=== PATIENT | female | born 1950 | race African-American/Black ===

== ENCOUNTER 2018-07-07 05:49 | Inpatient (IN) | payer MEDICARE, MEDICAID ==
[~2018-07-07] VITALS: Wt 63.6 kg
[2018-07-07] VITALS (28 sets, daily range): BP systolic 91–178; BP diastolic 43–87; PULSE 64–80; RESP 13–19
[~2018-07-07 05:49] MED LIST: ACET325T33 PO; AMLO5TAB4 PO; BUPR-75 PO; CLON-379 PO; DIPH50VI2 IM; DOCU250C58 PO; ESCI20TA PO; GABA600T PO; HYDR25TA6 PO; HYDR50TA15 PO; IBUP-1542 PO; LACT-9 PO; LIDO700A6 TD; METO-336 PO; OMEP20CA9 PO; OXYC-281 PO; OXYC40TA26 PO; POTA20PA PO; SENN-36 PO; TOLT2TAB5 PO; TRAZ300T15 PO; [UNRECOGNIZED DRUG - CODE] IM
--- NOTE | 2018-07-07 06:33 | ERD ---
ER Documentation Chief Complaint Chief Complaint bib RA possible right hip fracture s/p fall HPI This is a 68-year-old female with a past medical history of hypertension, hyperlipidemia, previous lumbar spinal fusion with chronic pain and frequent falls who is presenting after a mechanical fall this morning. The patient was reportedly walking to the bathroom. She went to turn on the lights that she could see where she was going when she lost her balance and fell, landing on her right hip. She has been unable to ambulate since. The patient has limited range of motion to the right hip secondary to pain. The right leg is shortened. The patient is able to move the right ankle and toes without difficulty. Her foot is not cold or pale or blue. Her sensation is intact. Her pulses are intact. The patient does not endorse any other trauma or injury. The patient denies feeling sick recently. The patient denies fever or chills. The patient has had no headache or vision changes. The patient does not endorse neck or back pain. The patient denies lightheadedness or dizziness. The patient has had no chest pain or trouble breathing. The patient denies nausea or vomiting. The patient denies abdominal pain. The patient denies changes to bowel movements or urination. The patient has had no focal deficits. The patient has had no weakness or numbness or tingling to the face or extremities. ROS All systems reviewed and are negative except as per history of present illness. Medications Home Meds Reported Medications Trazodone Hcl* (Trazodone Hcl*) 300 Mg Tablet, 300 MG PO HS, TAB 05/22/14 Lactose-Free Food (ENSURE LIQUID) 237 Ml Liquid, 237 ML PO DAILY 05/22/14 Clonidine Hcl* (Clonidine Hcl*) 0.1 Mg Tab, 0.1 MG PO DAILY PRN for ELEVATED BLOOD PRESSURE, TAB 05/22/14 Escitalopram Oxalate* (Lexapro*) 20 Mg Tablet, 20 MG PO DAILY, TAB 05/22/14 Metoprolol Succinate* (Toprol XL*) 100 Mg Tab.sr.24h, 100 MG PO BID, TAB 05/22/14 Acetaminophen* (Tylenol*) 325 Mg Tablet, 650 MG PO EVERY 4-6 HOURS PRN for PAIN AND OR ELEVATED TEMP, TAB 05/22/14 Omeprazole* (Prilosec*) 20 Mg Capsule.dr, 20 MG PO DAILY, CAP 05/22/14 Potassium Chloride (Klor-Con) 20 Meq/Pkt Packet, 20 MEQ PO DAILY, PACKET 05/22/14 Ibuprofen* (Ibuprofen*) 600 Mg Tablet, 600 MG PO EVERY 6-8 HOURS PRN for PAIN, TAB 05/22/14 Amlodipine Besylate* (Norvasc*) 5 Mg Tablet, 5 MG PO DAILY, TAB 05/22/14 Diphenhydramine* Inj (Benadryl* Inj) 50 Mg/Ml Vial, 50 MG IM Q6 PRN for ALLERGIC REACTION, VIAL 05/22/14 Meperidine Hcl/Pf (Demerol 75 Mg/1.5 Ml Ampul) 75 Mg/1.5 Ml Ampul, 75 MG IM Q6 PRN for PAIN 05/22/14 Lidocaine 5%* (Lidoderm 5%*) 5% - Patch Adh..patch, 1 PATCH TD HS PRN for ANESTHESIA, PATCH 05/22/14 Hydroxyzine Hcl* (Hydroxyzine Hcl*) 50 Mg Tablet, 50 MG PO BID, TAB 05/22/14 Gabapentin* (Neurontin*) 600 Mg Tablet, 600 MG PO BID, TAB 05/22/14 Oxycodone Hcl-Acetaminophen* (Percocet*) 5-325 Mg Tablet, 1 TAB PO Q6 PRN for PAIN, TAB 05/22/14 Tolterodine Tartrate* (Tolterodine Tartrate*) 2 Mg Tablet, 2 MG PO BID, TAB 05/22/14 Sennosides* (Senokot*) 8.6 Mg Tablet, 1 TAB PO HS, TAB 05/22/14 Oxycodone Hcl* (Oxycontin*) 40 Mg Tab.er.12h, 40 MG PO Q12, TAB 05/22/14 Hydrochlorothiazide* (Hydrochlorothiazide*) 25 Mg Tab, 25 MG PO DAILY, TAB 05/22/14 Docusate Sodium* (Colace*) 250 Mg Capsule, 250 MG PO DAILY PRN for CONSTIPATION, CAP 05/22/14 Bupropion Hcl* (Wellbutrin XL*) 150 Mg Tab.sr.24h, 450 MG PO DAILY, TAB.SA 05/22/14 Allergies Allergies: Coded Allergies: codeine (Verified Allergy, Unknown, 07/07/18) hydrocodone (Verified Allergy, Unknown, 07/07/18) hydromorphone (Verified Allergy, Unknown, 07/07/18) methadone (Verified Allergy, Unknown, 07/07/18) morphine (Verified Allergy, Unknown, 07/07/18) PMhx/Soc History of Surgery: Yes (L/S SPINAL FUSION, left shoulder surgery) Anesthesia Reaction: No Hx Neurological Disorder: No Hx Respiratory Disorders: No Hx Cardiac Disorders: Yes (Hypertension, hypercholesterolemia) Hx Psychiatric Problems: Yes (depression) Hx Miscellaneous Medical Probl: Yes (HTN, Chronic pain, fall history) Hx Alcohol Use: No Hx Substance Use: No Hx Tobacco Use: No Smoking Status: Never smoker FmHx Family History: No diabetes Physical Exam Vitals Vital Signs Date Temp Pulse Resp B/P (MAP) Pulse Ox O2 O2 Flow FiO2 Time Delivery Rate 07/07/18 98.4 62 16 132/92 100 06:00 (105) Physical Exam Const: No apparent distress, well-developed, well-nourished Head: Normocephalic, Atraumatic Eyes: Normal Conjunctiva. Extraocular movements grossly intact. ENT: Normal External Ears, Nose and Mouth. Neck: Full range of motion. No meningismus. Resp: Clear to auscultation bilaterally, No wheezes, rales or rhonchi Cardio: Regular rate and rhythm. No murmurs, rubs or gallops. Normal tibial and DP pulses. Abd: Soft, non tender, non distended. Normal bowel sounds Skin: No petechiae or rashes Back: No midline tenderness. No CVA tenderness Ext: No cyanosis, or edema. Limited range of motion to the right hip secondary to pain. Right leg shortening. Neur: Awake and alert, oriented 4. Cranial nerves grossly intact. No facial droop. Normal strength, sensation and coordination. Psych: Normal Mood and Affect Result Diagram: 07/07/18 0625 07/07/18 0625 Results 24 hrs Laboratory Tests Test 07/07/18 06:25 White Blood Count 8.5 10^3/ul Red Blood Count 4.22 10^6/ul Hemoglobin 13.2 g/dl Hematocrit 41.6 % Mean Corpuscular Volume 98.6 fl Mean Corpuscular Hemoglobin 31.3 pg Mean Corpuscular Hemoglobin Concent 31.7 g/dl Red Cell Distribution Width 13.1 % Platelet Count 158 10^3/UL Mean Platelet Volume 11.6 fl Immature Granulocytes % 0.500 % Neutrophils % 68.6 % Lymphocytes % 24.9 % Monocytes % 5.2 % Eosinophils % 0.6 % Basophils % 0.2 % Nucleated Red Blood Cells % 0.0 /100WBC Immature Granulocytes # 0.040 10^3/ul Neutrophils # 5.9 10^3/ul Lymphocytes # 2.1 10^3/ul Monocytes # 0.4 10^3/ul Eosinophils # 0.1 10^3/ul Basophils # 0.0 10^3/ul Nucleated Red Blood Cells # 0.0 10^3/ul Prothrombin Time 11.9 Sec Prothrombin Time Ratio 0.9 INR International Normalized Ratio 0.87 Sodium Level 143 mmol/L Potassium Level 3.4 mmol/L Chloride Level 104 mmol/L Carbon Dioxide Level 33 mmol/L Anion Gap 6 Blood Urea Nitrogen 16 mg/dl Creatinine 0.93 mg/dl Est Glomerular Filtrat Rate mL/min > 60 mL/min Glucose Level 103 mg/dl Calcium Level 9.6 mg/dl Current Medications Medications Dose Sig/Brenda Start Time Status Last (Trade) Ordered Route PRN Stop Time Admin Dose Reason Admin Ondansetron 4 mg BRIDGE ORDER 07/07/18 HCl (Zofran PRN IV 08:00 07/08/18 Inj) NAUSEA/VOMITI 07:59 NG 650 mg ER BRIDGE 07/07/18 Acetaminophen PRN PO 08:00 07/08/18 (Tylenol .MILD PAIN 07:59 Tab) 1-3 OR TEMP Procedures/MDM MDM The patient's presentation warrants further investigation. Previous medical records, if available, were reviewed. LABS The patient's laboratory testing was obtained and reviewed. No emergent treatment was required unless described below. CBC: No E/o systemic infection or severe anemia or thrombocytopenia Chemistry: No E/o severe acidosis or renal failure or diabetic ketoacidosis. Mild hypokalemia, nonemergent. Mild metabolic alkalosis, not emergent. PT/INR: No E/o significant coagulopathy EKG EKG read by me: Rate/Rhythm: Sinus bradycardia at 59 bpm Intervals: Normal [place]: Normal Impression: No evidence of acute ischemia. Sinus bradycardia. IMAGING Imaging and Radiology interpretation reviewed. CXR 1V Interpreted by me Soft Tissue: No acute abnormalities Bones: No acute abnormalities. Left humeral surgical hardware present. Mediastinum/Cardiac Silhouette: Unremarkable. No widened mediastinum. Lungs: No acute abnormalities. Normal pulmonary vasculature. No pneumothorax. No pulmonary edema. Clear costal diaphragmatic angles. No pleural effusions. No opacity or consolidations concerning for pneumonia. XR R Hip Interpreted by me R femur surgical neck fracture XR R Femur PENDING TREATMENT/DISPOSITION The patient presents with right hip pain after fall. The x-ray demonstrates a right femur surgical neck fracture. This will require operative intervention. The patient will require further evaluation and management in the hospital. The on-call orthopedic surgeon, Dr. Caldwell, was consulted on the case. There is no other evidence of trauma or injury. The patient presents after a trauma. The patient was evaluated fully without evidence of emergent posttraumatic pathology. The patient has no focal deficits. I've low suspicion for intracranial pathology. I have low suspicion for cerebral ischemia or intracranial hemorrhage. The patient has no cervical spine tenderness. He can move his neck in all directions without any pain. As stated above, he does not have any focal deficits. He is not altered or intoxicated. He does not have any distracting injuries. The patient's cervical spine was clinically cleared using the Nexus C-spine rule. The patient does not have any saddle anesthesia. He has not been incontinent of urine or stool. He has not had any retention of urine or stool. I have low suspicion for spinal cord injury. The patient's chest x-ray does not reveal any evidence of pneumonia or pneumothorax or pulmonary edema or pleural effusion. The patient's cardiomediastinal silhouette is unremarkable. I do not suspect pericardial effusion. I do not see any mediastinal free air. I have low suspicion for esophageal tear or rupture. The patient does not have a widened mediastinum. The patient does not have chest pain radiating to the back. It does not have a sharp or tearing quality. I have low suspicion for thoracic aortic aneurysm or rupture or dissection. The patient's symptoms are not consistent with pulmonary embolism. The patient does not have any abdominal pain. I have low suspicion for posttraumatic intra-abdominal pathology. The patient's vital signs are unremarkable. I low suspicion for hepatic or splenic or renal trauma. The patient does not have any GI or urinary bleeding. I decreased suspicion for intestinal injury. I have low suspicion for urethral injury. Preoperative testing was completed. The patient was treated with a dose of fentanyl for pain. ADMISSION At this time, I feel that the patient requires admission for further evaluation and magnagement. The patient will be admitted to panel in accordance with the patient's insurance. The patient was accepted by Dr. Ramos to Panel at 7:11AM on 07/07/2018. Dr. Caldwell was consulted on the case. Disclaimer: Inadvertent spelling and grammatical errors are likely due to EHR/dictation software use and do not reflect on the overall quality of patient care. Note that the electronic time recorded on this note does not necessarily reflect the actual time of the patient encounter. Departure Diagnosis: Primary Impression: Hip fracture Encounter type: initial encounter Fracture type: closed Laterality: r ight Qualified Codes: S72.001A - Fracture of unspecified part of neck of right femur, initial encounter for closed fracture Additional Impressions: Right hip pain Fall from ground level Hypokalemia Metabolic alkalosis Condition: Serious MIR ARMANDO MD July 07, 2018 06:31
[2018-07-07] MEDS ORDERED: DESFLURANE 15 MIN ONE (07:00)
[2018-07-07] MEDS ORDERED: FENTAnyl 50 MCG/ML VIAL IV ONE (08:00)
[2018-07-07] MEDS ORDERED: ACETAMINOPHEN 325 MG TAB PO PRN ×2 (08:00→09:30)
[2018-07-07] MEDS ORDERED: ONDANSETRON 4 MG INJ IV PRN ×4 (08:00→18:30)
[2018-07-07] MEDS ORDERED: POTASSIUM CHLORIDE 100 ML IVPB ONE (09:00)
--- NOTE | 2018-07-07 09:09 | HP ---
Date/Time of Note Date/Time of Note DATE: 07/07/18 TIME: 08:54 Assessment/Plan VTE Prophylaxis SCD applied (from Nsg): Yes Pharmacological prophylaxis: heparin Lines/Catheters IV Catheter Type (from Nrsg): Saline Lock Assessment/Plan Problems: (1) Closed right hip fracture Status: Acute Comment: Is already been seen by orthopedics and wishes to take her to surgery for repair. At this time I find her to be an acceptable surgical candidate and concur with your plans to proceed with surgery. She has a modest hypokalemia which will evaluate at a later date for because were going ahead and replace it IV now. She has an average surgical risk as compared to her age-matched peers and should do well using standard routine anesthesia precautions. Using the modified Caceres's criteria she is at intermediate risk Qualifiers: Encounter type: initial encounter Qualified Codes: S72.001A - Fracture of unspecified part of neck of right femur, initial encounter for closed fracture (2) Acute hypokalemia Status: Acute Comment: Reports this is actually chronic issue. I will go ahead and replete this but they will need to look into why this is happening. (3) Essential hypertension Status: Chronic Comment: Continue with blood pressure medications (4) Hyperlipidemia Status: Chronic Comment: Statin therapy Qualifiers: Hyperlipidemia type: pure hypercholesterolemia Qualified Codes: E78.00 - Pure hypercholesterolemia, unspecified (5) Chronic pain disorder Status: Chronic Comment: Patient reports she has multiple medication intolerances but is able to take OxyContin. She reports that gabapentin the past was of no benefit after an 8-year trial of medications. (6) Dysthymia Status: Chronic Comment: Continue with SSRI therapy (7) Closed fracture dislocation of left sacroiliac joint Status: Chronic Comment: Historical issue, noted from 4 years ago (8) Compression fracture of L3 vertebra Status: Chronic Comment: Noted. Qualifiers: Encounter type: subsequent encounter Fracture healing: with routine healing Qualified Codes: S32.030D - Wedge compression fracture of third lumbar vertebra, subsequent encounter for fracture with routine healing (9) History of lumbar spinal fusion Status: Chronic Comment: Noted. (10) History of open reduction and internal fixation (ORIF) procedure Status: Chronic Comment: This was of the left humerus, noted. Result Diagram: 07/07/1862407/07/18624 Results 24hrs Laboratory Tests Test 07/07/18 06:25 White Blood Count 8.5 Red Blood Count 4.22 Hemoglobin 13.2 Hematocrit 41.6 Mean Corpuscular Volume 98.6 Mean Corpuscular Hemoglobin 31.3 Mean Corpuscular Hemoglobin Concent 31.7 L Red Cell Distribution Width 13.1 Platelet Count 158 Mean Platelet Volume 11.6 H Immature Granulocytes % 0.500 H Neutrophils % 68.6 Lymphocytes % 24.9 Monocytes % 5.2 Eosinophils % 0.6 Basophils % 0.2 Nucleated Red Blood Cells % 0.0 Immature Granulocytes # 0.040 H Neutrophils # 5.9 Lymphocytes # 2.1 Monocytes # 0.4 Eosinophils # 0.1 Basophils # 0.0 Nucleated Red Blood Cells # 0.0 Prothrombin Time 11.9 Prothrombin Time Ratio 0.9 INR International Normalized Ratio 0.87 Sodium Level 143 Potassium Level 3.4 L Chloride Level 104 Carbon Dioxide Level 33 H Anion Gap 6 Blood Urea Nitrogen 16 Creatinine 0.93 Est Glomerular Filtrat Rate mL/min > 60 Glucose Level 103 Calcium Level 9.6 CC: NISH CORBETT MD ; HPI/ROS Admit Date/Time Admit Date/Time July 07, 2018 Hx of Present Illness 68-year-old single female who is a resident of an assisted living facility. She has a history of chronic pain syndrome after several back surgeries. She in the past and had a history of frequent falls with the patient reports she had not had any falls in the last 3 years. She reports she needed to go to the bathroom when she got out of her bed but caught her foot on her cane and went down sustaining injury to the right hip. She was transported here for further evaluation and assistance. Primary care physician is Dr. Sparks, see review of systems ROS Constitutional: no complaints (No fevers chills or sweats) Eyes: no complaints ENT: no complaints Respiratory: no complaints Cardiovascular: no complaints (Patient reports no chest pain palpitations orthopnea or PND. She ambulates with a walker and can ambulate distance but does not climbing stairs. 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 Current Medications Ondansetron HCl (Zofran Inj) 4 mg BRIDGE ORDER PRN IV NAUSEA/VOMITING; Start 07/07/18 at 08:00; Stop 07/08/18 at 07:59 Acetaminophen (Tylenol Tab) 650 mg ER BRIDGE PRN PO .MILD PAIN 1-3 OR TEMP; Start 07/07/18 at 08:00; Stop 07/08/18 at 07:59 Potassium Chloride 100 ml @ 50 mls/hr ONCE ONCE IVPB ; Start 07/07/18 at 09:00; Stop 07/07/18 at 10:59 Coded Allergies: codeine (Verified Allergy, Unknown, 07/07/18) hydrocodone (Verified Allergy, Unknown, 07/07/18) hydromorphone (Verified Allergy, Unknown, 07/07/18) methadone (Verified Allergy, Unknown, 07/07/18) morphine (Verified Allergy, Unknown, 07/07/18) Past Surgical History Past Surgical Hx: other (Is post lumbar surgery x4 with multilevel fusion and cage; status post ORIF of left humerus fracture;) Family History Significant Family History: no pertinent family hx Social History [place] [facility] and raised in [place] [facility] age [place] 7 in the [place]. 2 years of college without experience. She is a divorce she has 2 children. Alcohol Use: none Smoking Status: Never smoker Drug Use: none Exam/Review of Systems Vital Signs Vitals Vital Signs Date Temp Pulse Resp B/P (MAP) Pulse Ox O2 O2 Flow FiO2 Time Delivery Rate 07/07/18 98.4 62 16 132/92 100 06:00 (105) Exam Constitutional: alert, oriented Psych: no complaints Head: normocephalic, atraumatic Eyes: nl conjunctiva, EOMI, nl lids, nl sclera, PERRL ENMT: nl external ears & nose, nl lips & teeth, nl nasal mucosa & septum, mucosa pink and moist Neck: supple, non-tender Respiratory: clear to auscultation, normal air movement Cardiovascular: regular rate and rhythm, nl pulses Gastrointestinal: soft, nl liver, spleen, non-tender Extremities: other (Left upper extremity limited range of motion of the shoulder; right lower extremity retracted and rotated) Neurological: RESIDENT DIRECTOR II-XII intact, nl mental status, nl speech, nl strength PRERNA BARONE MD July 07, 2018 09:06
[2018-07-07] MEDS ORDERED: OXYCODONE/ACETAMINOPHEN (5/325) TAB PO PRN ×3 (09:30→15:30)
[2018-07-07] MEDS ORDERED: NACL 0.9% 3 ML SYG IV SCH (09:30)
[2018-07-07] MEDS ORDERED: DOCUSATE SODIUM 250 MG CAP PO PRN (09:30)
[2018-07-07] MEDS ORDERED: ZOLPIDEM 5 MG TAB PO PRN (09:30)
[2018-07-07] MEDS ORDERED: LIDOCAINE 5% PATCH TD PRN (09:30)
[2018-07-07] MEDS ORDERED: MAGNESIUM HYDROXIDE 30ML CUP PO PRN ×2 (09:30→18:30)
[2018-07-07] MEDS ORDERED: ONDANSETRON 4 MG TAB PO PRN (09:30)
--- NOTE | 2018-07-07 13:10 | CONS ---
Assessment/Plan Assessment/Plan Hospital Course (Demo Recall) This is a 68-year-old female who presented with acute right displaced femoral neck fracture. She uses a walker to ambulate at all times. She is a high fall risk. She is at increased risk of dislocation secondary to multilevel spine fusion. Given her dislocation risk as well as activity level I am recommending a hemiarthroplasty hip replacement. I reviewed other options the patient such as nonoperative treatment and it explained to her that she would be immobile and bedridden for many months and likely would not be able to bear weight on that extremity. I reviewed the risks with the patient and she wished to proceed with surgery. A lengthy discussion was held. The operative procedure was explained using diagrams and/or three-dimensional models. The rehabilitation, the potential risks, benefits and alternatives were discussed at length. Specific risks discussed included but were not limited to excessive blood loss and the need for transfusion and therefore the risk of transmissible disease or transfusion reaction, deep infection and the potential need for repetitive debridements, implant removal, long-term antibiotic therapy, possibly requiring deep venous access, leg-length discrepancy, dislocation, possibly recurrent, with the need for closed versus open reduction, bracing, femoral or acetabular fracture and the need for further surgery for fixation, neurovascular injury with temporary or permanent numbness, tingling, weakness or paralysis, deep venous thrombosis, pulmonary embolism and , persistent pain, weakness, or limp, late aseptic loosening and the need for revision, polyethylene wear-induced osteolysis and related problems, and finally, a wide variety of unanticipated medical problems. The opportunity to ask questions and address any concerns was provided. The patient wished to proceed with surgery. Patient already is medically optimized and cleared by medicine. Plan for right hemiarthroplasty today. N.p.o. Nonweightbearing right lower extremity Pain control Consultation Date/Type/Reason Admit Date/Time July 07, 2018 Date of Consultation: July 07, 2018 Reason for Consultation Right hip fracture Date/Time of Note DATE: 07/07/18 TIME: 13:02 Hx of Present Illness This is a 68-year-old female with history of numerous spine surgeries, hypokalemia, hypertension, chronic pain disorder, depression who presented to the emergency department this morning with a right femoral neck fracture. She fell while in her apartment. She lives in an assisted living. She is been there for more than 5 years. She uses a walker at all times. This is secondary to chronic back pain, balance issues, frequent falls. She also has history of right ankle fracture x2 and has chronic pain in her ankle. Patient does have numbness and tingling that is chronic. Denies any new pain since falling. Denies any head trauma. Denies loss of consciousness. Patient does have multiple dental issues and is going to have her teeth pulled in a short while. Patient denies fever, chills, shortness of breath, chest pain, nausea/vomiting, constipation, diarrhea, numbness, and tingling. 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; history of pelvic fracture; history of left humerus fracture x2) Home Meds Reported Medications Trazodone Hcl* (Trazodone Hcl*) 300 Mg Tablet, 300 MG PO HS, TAB 05/22/14 Lactose-Free Food (ENSURE LIQUID) 237 Ml Liquid, 237 ML PO DAILY 05/22/14 Clonidine Hcl* (Clonidine Hcl*) 0.1 Mg Tab, 0.1 MG PO DAILY PRN for ELEVATED BLOOD PRESSURE, TAB 05/22/14 Escitalopram Oxalate* (Lexapro*) 20 Mg Tablet, 20 MG PO DAILY, TAB 05/22/14 Metoprolol Succinate* (Toprol XL*) 100 Mg Tab.sr.24h, 100 MG PO BID, TAB 05/22/14 Acetaminophen* (Tylenol*) 325 Mg Tablet, 650 MG PO EVERY 4-6 HOURS PRN for PAIN AND OR ELEVATED TEMP, TAB 05/22/14 Omeprazole* (Prilosec*) 20 Mg Capsule.dr, 20 MG PO DAILY, CAP 05/22/14 Potassium Chloride (Klor-Con) 20 Meq/Pkt Packet, 20 MEQ PO DAILY, PACKET 05/22/14 Ibuprofen* (Ibuprofen*) 600 Mg Tablet, 600 MG PO EVERY 6-8 HOURS PRN for PAIN, TAB 05/22/14 Amlodipine Besylate* (Norvasc*) 5 Mg Tablet, 5 MG PO DAILY, TAB 05/22/14 Diphenhydramine* Inj (Benadryl* Inj) 50 Mg/Ml Vial, 50 MG IM Q6 PRN for ALLERGIC REACTION, VIAL 05/22/14 Meperidine Hcl/Pf (Demerol 75 Mg/1.5 Ml Ampul) 75 Mg/1.5 Ml Ampul, 75 MG IM Q6 PRN for PAIN 05/22/14 Lidocaine 5%* (Lidoderm 5%*) 5% - Patch Adh..patch, 1 PATCH TD HS PRN for ANESTHESIA, PATCH 05/22/14 Hydroxyzine Hcl* (Hydroxyzine Hcl*) 50 Mg Tablet, 50 MG PO BID, TAB 05/22/14 Gabapentin* (Neurontin*) 600 Mg Tablet, 600 MG PO BID, TAB 05/22/14 Oxycodone Hcl-Acetaminophen* (Percocet*) 5-325 Mg Tablet, 1 TAB PO Q6 PRN for PAIN, TAB 05/22/14 Tolterodine Tartrate* (Tolterodine Tartrate*) 2 Mg Tablet, 2 MG PO BID, TAB 05/22/14 Sennosides* (Senokot*) 8.6 Mg Tablet, 1 TAB PO HS, TAB 05/22/14 Oxycodone Hcl* (Oxycontin*) 40 Mg Tab.er.12h, 40 MG PO Q12, TAB 05/22/14 Hydrochlorothiazide* (Hydrochlorothiazide*) 25 Mg Tab, 25 MG PO DAILY, TAB 05/22/14 Docusate Sodium* (Colace*) 250 Mg Capsule, 250 MG PO DAILY PRN for CONSTIPATION, CAP 05/22/14 Bupropion Hcl* (Wellbutrin XL*) 150 Mg Tab.sr.24h, 450 MG PO DAILY, TAB.SA 05/22/14 Medications Current Medications Ondansetron HCl (Zofran Inj) 4 mg BRIDGE ORDER PRN IV NAUSEA/VOMITING; Start 07/07/18 at 08:00; Stop 07/08/18 at 07:59 Acetaminophen (Tylenol Tab) 650 mg ER BRIDGE PRN PO .MILD PAIN 1-3 OR TEMP; Start 07/07/18 at 08:00; Stop 07/08/18 at 07:59 IV Flush (NS 3 ml) 3 ml PER PROTOCOL IV ; Start 07/07/18 at 09:30 Ondansetron HCl (Zofran Tab) 4 mg Q6H PRN PO NAUSEA/VOMITING; Start 07/07/18 at 09:30 Ondansetron HCl (Zofran Inj) 4 mg Q6H PRN IV NAUSEA/VOMITING; Start 07/07/18 at 09:30 Acetaminophen (Tylenol Tab) 650 mg Q6H PRN PO .PAIN 1-3 OR TEMP; Start 07/07/18 at 09:30 Oxycodone/ Acetaminophen (Percocet (5/ 325)) 1 tab Q6H PRN PO .MOD PAIN 4-6 Last administered on 07/07/18at 09:48; Admin Dose 1 TAB; Start 07/07/18 at 09:30 Magnesium Hydroxide (Milk Of Mag) 30 ml DAILY PRN PO .CONSTIPATION; Start 07/07/18 at 09:30 Zolpidem Tartrate (Ambien) 5 mg QHS PRN PO .INSOMNIA; Start 07/07/18 at 09:30 Famotidine (Pepcid) 20 mg Q12 PO ; Start 07/07/18 at 21:00 Heparin Sodium (Porcine) (Heparin (5000 Units/1ml)) 5,000 unit Q12 SC ; Start 07/07/18 at 21:00 Amlodipine Besylate (Norvasc) 5 mg DAILY PO ; Start 07/08/18 at 09:00 Bupropion HCl (Wellbutrin Xl) 450 mg DAILY PO ; Start 07/08/18 at 09:00 Clonidine (Catapres) 0.1 mg DAILY PRN PO ELEVATED BLOOD PRESSURE; Start 07/07/18 at 09:30; Status Hold Docusate Sodium (Colace) 250 mg DAILY PRN PO CONSTIPATION; Start 07/07/18 at 09:30 Escitalopram Oxalate (Lexapro) 20 mg DAILY PO ; Start 07/08/18 at 09:00 Hydroxyzine HCl (Atarax) 50 mg BID PO ; Start 07/07/18 at 21:00 Lidocaine (Lidoderm) 1 patch HS PRN TD ANESTHESIA; Start 07/07/18 at 09:30 Metoprolol Succinate (Toprol Xl) 100 mg BID PO ; Start 07/07/18 at 21:00 Oxycodone HCl (Oxycontin) 40 mg Q12 PO ; Start 07/07/18 at 21:00 Potassium Chloride (Potassium Chloride Pwd/Soln) 20 meq DAILY PO ; Start 07/08/18 at 09:00 Senna (Senokot) 1 tab HS PO ; Start 07/07/18 at 21:00 Trazodone HCl (Desyrel) 300 mg HS PO ; Start 07/07/18 at 21:00 Allergies: Coded Allergies: codeine (Verified Allergy, Unknown, 07/07/18) hydrocodone (Verified Allergy, Unknown, 07/07/18) hydromorphone (Verified Allergy, Unknown, 07/07/18) methadone (Verified Allergy, Unknown, 07/07/18) morphine (Verified Allergy, Unknown, 07/07/18) Past Surgical History Numerous spine surgeries with fusion and fixation. Past Surgical Hx: other (Is post lumbar surgery x4 with multilevel fusion and cage; status post ORIF of left humerus fracture;) Social History Alcohol Use: none Smoking Status: Never smoker Drug Use: none Exam/Review of Systems Exam Vitals Vital Signs Date Temp Pulse Resp B/P (MAP) Pulse Ox O2 O2 Flow FiO2 Time Delivery Rate 07/07/18 98.3 79 17 146/69 99 Room Air 12:36 (94) Exam General: Awake, alert, in no acute distress, pleasant and cooperative Heart: regular rhythm Lungs: breathing comfortably, no tachypnea or dyspnea MUSCULOSKELETAL: Right lower extremity: Skin is intact. There is ecchymosis over the posterior lateral aspect of the hip. The lower extremity is shortened and externally rotated. Sensation decreased but grossly intact to light touch in a sural, saphenous, deep peroneal, superficial peroneal, medial and lateral plantar nerve distribution. Motor is weak but grossly intact, patient able to dorsiflex and plantarflex ankle and extend and flex great toe. Dorsalis Pedis pulse +2, Brisk capillary refill. Compartments are soft. Calves non-tender to palpation bilaterally. Results Result Diagram: 07/07/18 0625 07/07/18 0625 Results 24hrs Laboratory Tests Test 07/07/18 06:25 07/07/18 10:11 White Blood Count 8.5 Red Blood Count 4.22 Hemoglobin 13.2 Hematocrit 41.6 Mean Corpuscular Volume 98.6 Mean Corpuscular Hemoglobin 31.3 Mean Corpuscular Hemoglobin Concent 31.7 L Red Cell Distribution Width 13.1 Platelet Count 158 Mean Platelet Volume 11.6 H Immature Granulocytes % 0.500 H Neutrophils % 68.6 Lymphocytes % 24.9 Monocytes % 5.2 Eosinophils % 0.6 Basophils % 0.2 Nucleated Red Blood Cells % 0.0 Immature Granulocytes # 0.040 H Neutrophils # 5.9 Lymphocytes # 2.1 Monocytes # 0.4 Eosinophils # 0.1 Basophils # 0.0 Nucleated Red Blood Cells # 0.0 Prothrombin Time 11.9 Prothrombin Time Ratio 0.9 INR International Normalized Ratio 0.87 Sodium Level 143 Potassium Level 3.4 L Chloride Level 104 Carbon Dioxide Level 33 H Anion Gap 6 Blood Urea Nitrogen 16 Creatinine 0.93 Est Glomerular Filtrat Rate mL/min > 60 Glucose Level 103 Calcium Level 9.6 Magnesium Level 2.0 Hepatitis B Surface Antigen NEGATIVE Hepatitis C Antibody NEGATIVE Urine Color YELLOW Urine Clarity CLEAR Urine pH 6.0 Urine Specific [place] 1.009 Urine Ketones NEGATIVE Urine Nitrite NEGATIVE Urine Bilirubin NEGATIVE Urine Urobilinogen NEGATIVE Urine Leukocyte Esterase NEGATIVE Urine Hemoglobin NEGATIVE Urine Glucose NEGATIVE Urine Total Protein NEGATIVE Imaging Imaging AP pelvis and AP and with lateral of the right hip demonstrate an acute displaced femoral neck fracture. Lumbar spine partially visualized showing multilevel fusion and fixation.. Medications Medication Current Medications Ondansetron HCl (Zofran Inj) 4 mg BRIDGE ORDER PRN IV NAUSEA/VOMITING; Start 07/07/18 at 08:00; Stop 07/08/18 at 07:59 Acetaminophen (Tylenol Tab) 650 mg ER BRIDGE PRN PO .MILD PAIN 1-3 OR TEMP; Start 07/07/18 at 08:00; Stop 07/08/18 at 07:59 IV Flush (NS 3 ml) 3 ml PER PROTOCOL IV ; Start 07/07/18 at 09:30 Ondansetron HCl (Zofran Tab) 4 mg Q6H PRN PO NAUSEA/VOMITING; Start 07/07/18 at 09:30 Ondansetron HCl (Zofran Inj) 4 mg Q6H PRN IV NAUSEA/VOMITING; Start 07/07/18 at 09:30 Acetaminophen (Tylenol Tab) 650 mg Q6H PRN PO .PAIN 1-3 OR TEMP; Start 07/07/18 at 09:30 Oxycodone/ Acetaminophen (Percocet (5/ 325)) 1 tab Q6H PRN PO .MOD PAIN 4-6 Last administered on 07/07/18at 09:48; Admin Dose 1 TAB; Start 07/07/18 at 09:30 Magnesium Hydroxide (Milk Of Mag) 30 ml DAILY PRN PO .CONSTIPATION; Start 07/07/18 at 09:30 Zolpidem Tartrate (Ambien) 5 mg QHS PRN PO .INSOMNIA; Start 07/07/18 at 09:30 Famotidine (Pepcid) 20 mg Q12 PO ; Start 07/07/18 at 21:00 Heparin Sodium (Porcine) (Heparin (5000 Units/1ml)) 5,000 unit Q12 SC ; Start 07/07/18 at 21:00 Amlodipine Besylate (Norvasc) 5 mg DAILY PO ; Start 07/08/18 at 09:00 Bupropion HCl (Wellbutrin Xl) 450 mg DAILY PO ; Start 07/08/18 at 09:00 Clonidine (Catapres) 0.1 mg DAILY PRN PO ELEVATED BLOOD PRESSURE; Start 07/07/18 at 09:30; Status Hold Docusate Sodium (Colace) 250 mg DAILY PRN PO CONSTIPATION; Start 07/07/18 at 09:30 Escitalopram Oxalate (Lexapro) 20 mg DAILY PO ; Start 07/08/18 at 09:00 Hydroxyzine HCl (Atarax) 50 mg BID PO ; Start 07/07/18 at 21:00 Lidocaine (Lidoderm) 1 patch HS PRN TD ANESTHESIA; Start 07/07/18 at 09:30 Metoprolol Succinate (Toprol Xl) 100 mg BID PO ; Start 07/07/18 at 21:00 Oxycodone HCl (Oxycontin) 40 mg Q12 PO ; Start 07/07/18 at 21:00 Potassium Chloride (Potassium Chloride Pwd/Soln) 20 meq DAILY PO ; Start 07/08/18 at 09:00 Senna (Senokot) 1 tab HS PO ; Start 07/07/18 at 21:00 Trazodone HCl (Desyrel) 300 mg HS PO ; Start 07/07/18 at 21:00 NISH CORBETT MD July 07, 2018 13:10
--- NOTE | 2018-07-07 14:02 | PREAC ---
Date/Time of Note Date/Time of Note DATE: 07/07/18 TIME: 14:00 Anesthesia Eval and Record Evaluation Time Pre-Procedure Interview DATE: 07/07/18 TIME: 14:00 Age 68 Sex female NPO: 8 hrs Preoperative diagnosis right hip fx Planned procedure right hip hemiartyhroplasty Past Medical History Past Medical History: Includes Cardio: HTN, Dyslipidemia Musculoskeletal: Other (back pain, spinal fusion) Surgery & Anesthesia Issues No known issue Meds Anticoagulation: No Beta Yissel within 24 hr: Yes Reported Medications Trazodone Hcl* (Trazodone Hcl*) 300 Mg Tablet, 300 MG PO HS, TAB 05/22/14 Lactose-Free Food (ENSURE LIQUID) 237 Ml Liquid, 237 ML PO DAILY 05/22/14 Clonidine Hcl* (Clonidine Hcl*) 0.1 Mg Tab, 0.1 MG PO DAILY PRN for ELEVATED BLOOD PRESSURE, TAB 05/22/14 Escitalopram Oxalate* (Lexapro*) 20 Mg Tablet, 20 MG PO DAILY, TAB 05/22/14 Metoprolol Succinate* (Toprol XL*) 100 Mg Tab.sr.24h, 100 MG PO BID, TAB 05/22/14 Acetaminophen* (Tylenol*) 325 Mg Tablet, 650 MG PO EVERY 4-6 HOURS PRN for PAIN AND OR ELEVATED TEMP, TAB 05/22/14 Omeprazole* (Prilosec*) 20 Mg Capsule.dr, 20 MG PO DAILY, CAP 05/22/14 Potassium Chloride (Klor-Con) 20 Meq/Pkt Packet, 20 MEQ PO DAILY, PACKET 05/22/14 Ibuprofen* (Ibuprofen*) 600 Mg Tablet, 600 MG PO EVERY 6-8 HOURS PRN for PAIN, TAB 05/22/14 Amlodipine Besylate* (Norvasc*) 5 Mg Tablet, 5 MG PO DAILY, TAB 05/22/14 Diphenhydramine* Inj (Benadryl* Inj) 50 Mg/Ml Vial, 50 MG IM Q6 PRN for ALLERGIC REACTION, VIAL 05/22/14 Meperidine Hcl/Pf (Demerol 75 Mg/1.5 Ml Ampul) 75 Mg/1.5 Ml Ampul, 75 MG IM Q6 PRN for PAIN 05/22/14 Lidocaine 5%* (Lidoderm 5%*) 5% - Patch Adh..patch, 1 PATCH TD HS PRN for ANESTHESIA, PATCH 05/22/14 Hydroxyzine Hcl* (Hydroxyzine Hcl*) 50 Mg Tablet, 50 MG PO BID, TAB 05/22/14 Gabapentin* (Neurontin*) 600 Mg Tablet, 600 MG PO BID, TAB 05/22/14 Oxycodone Hcl-Acetaminophen* (Percocet*) 5-325 Mg Tablet, 1 TAB PO Q6 PRN for PAIN, TAB 05/22/14 Tolterodine Tartrate* (Tolterodine Tartrate*) 2 Mg Tablet, 2 MG PO BID, TAB 05/22/14 Sennosides* (Senokot*) 8.6 Mg Tablet, 1 TAB PO HS, TAB 05/22/14 Oxycodone Hcl* (Oxycontin*) 40 Mg Tab.er.12h, 40 MG PO Q12, TAB 05/22/14 Hydrochlorothiazide* (Hydrochlorothiazide*) 25 Mg Tab, 25 MG PO DAILY, TAB 05/22/14 Docusate Sodium* (Colace*) 250 Mg Capsule, 250 MG PO DAILY PRN for CONSTIPATION, CAP 05/22/14 Bupropion Hcl* (Wellbutrin XL*) 150 Mg Tab.sr.24h, 450 MG PO DAILY, TAB.SA 05/22/14 Current Medications IV Flush (NS 3 ml) 3 ml PER PROTOCOL IV ; Start 07/07/18 at 09:30 Ondansetron HCl (Zofran Tab) 4 mg Q6H PRN PO NAUSEA/VOMITING; Start 07/07/18 at 09:30 Ondansetron HCl (Zofran Inj) 4 mg Q6H PRN IV NAUSEA/VOMITING; Start 07/07/18 at 09:30 Acetaminophen (Tylenol Tab) 650 mg Q6H PRN PO .PAIN 1-3 OR TEMP; Start 07/07/18 at 09:30 Oxycodone/ Acetaminophen (Percocet (5/ 325)) 1 tab Q6H PRN PO .MOD PAIN 4-6 Last administered on 07/07/18at 09:48; Admin Dose 1 TAB; Start 07/07/18 at 09:30 Magnesium Hydroxide (Milk Of Mag) 30 ml DAILY PRN PO .CONSTIPATION; Start 07/07/18 at 09:30 Zolpidem Tartrate (Ambien) 5 mg QHS PRN PO .INSOMNIA; Start 07/07/18 at 09:30 Famotidine (Pepcid) 20 mg Q12 PO ; Start 07/07/18 at 21:00 Amlodipine Besylate (Norvasc) 5 mg DAILY PO ; Start 07/08/18 at 09:00 Clonidine (Catapres) 0.1 mg DAILY PRN PO ELEVATED BLOOD PRESSURE; Start 07/07/18 at 09:30; Status Hold Docusate Sodium (Colace) 250 mg DAILY PRN PO CONSTIPATION; Start 07/07/18 at 09:30 Escitalopram Oxalate (Lexapro) 20 mg DAILY PO ; Start 07/08/18 at 09:00 Hydroxyzine HCl (Atarax) 50 mg BID PO ; Start 07/07/18 at 21:00 Lidocaine (Lidoderm) 1 patch HS PRN TD ANESTHESIA; Start 07/07/18 at 09:30 Metoprolol Succinate (Toprol Xl) 100 mg BID PO ; Start 07/07/18 at 21:00 Oxycodone HCl (Oxycontin) 40 mg Q12 PO ; Start 07/07/18 at 21:00 Potassium Chloride (Potassium Chloride Pwd/Soln) 20 meq DAILY PO ; Start 07/08/18 at 09:00 Senna (Senokot) 1 tab HS PO ; Start 07/07/18 at 21:00 Trazodone HCl (Desyrel) 300 mg HS PO ; Start 07/07/18 at 21:00 Bupropion HCl (Wellbutrin Xl) 300 mg DAILY PO ; Start 07/08/18 at 09:00 Topiramate (Topamax) 25 mg QHS PO ; Start 07/07/18 at 21:00 Latanoprost (Xalatan) 1 drop HS BOTH EYES ; Start 07/07/18 at 21:00 Aripiprazole (Abilify) 5 mg QHS PO ; Start 07/07/18 at 21:00 Duloxetine HCl (Cymbalta) 60 mg QAM PO ; Start 07/08/18 at 09:00 Cholecalciferol (Vitamin D) 2,000 unit QAM PO ; Start 07/08/18 at 09:00 Cyanocobalamin (Vitamin B12 Inj) 1,000 mcg ONCE ONCE IM ; Start 07/07/18 at 14:30; Stop 07/07/18 at 14:31 Meds reviewed: Yes Allergies Coded Allergies: codeine (Verified Allergy, Unknown, 07/07/18) hydrocodone (Verified Allergy, Unknown, 07/07/18) hydromorphone (Verified Allergy, Unknown, 07/07/18) methadone (Verified Allergy, Unknown, 07/07/18) morphine (Verified Allergy, Unknown, 07/07/18) Allergies Reviewed: Yes Labs/Studies Labs Reviewed: Reviewed by anesthesiologist Result Diagram: 07/07/18 0625 07/07/18 0625 Laboratory Tests 07/07/18 06:25 Blood Bank Test 07/07/18 06:25 Antibody Screen NEGATIVE Blood Type O POSITIVE test: N/A Studies: ECG (sr), CXR (no acute assue) Pre-procedure Exam Last vitals Vital Signs Date Temp Pulse Resp B/P (MAP) Pulse Ox O2 O2 Flow FiO2 Time Delivery Rate 07/07/18 98.3 79 17 146/69 99 Room Air 12:36 (94) Airway: Adequate mouth opening Mallampati: Mallampati II Teeth: Normal Lung: Normal Heart: Normal ASA Physical Status ASA physical status: 2 Emergency: E Planned Anesthetic General/MAC: ETT, LMA Neuraxial: Spinal Planned Pain Management Sub-arachniod narcotics, Single shot nerve block Pre-operative Attestations Prior to commencing anesthesia and surgery, the patient was re-evaluated, there was verification of: *The patient's identity *The results of appropriate recent lab work and preoperative vital signs *The above evaluation not changing prior to induction *Anesthetic plan, risk benefits, alternative and complications discussed with patient/family; questions answered; patient/family understands, accepts and wishes to proceed. CLAUDIA BAEZ MD July 07, 2018 14:02
[2018-07-07] MEDS ORDERED: PROPOFOL 20 ML ONE ×2 (14:07→16:12)
[2018-07-07] MEDS ORDERED: CEFAZOLIN 1 GM INJ ONE (14:07)
[2018-07-07] MEDS ORDERED: METOCLOPRAMIDE 10 MG INJ ONE (14:08)
[2018-07-07] MEDS ORDERED: morphine SULFATE/PF (10 MG/10 ML) INJ ONE (14:08)
[2018-07-07] MEDS ORDERED: ROPIVACAINE 0.5 % 30 ML VIAL ONE (14:08)
[2018-07-07] MEDS ORDERED: ONDANSETRON 4 MG INJ ONE (14:08)
[2018-07-07] MEDS ORDERED: MIDAZOLAM 1 MG/ML 2 ML INJ ONE (14:08)
[2018-07-07] MEDS ORDERED: FENTAnyl 50 MCG/ML VIAL ONE ×2 (14:12→19:11)
[2018-07-07] MEDS ORDERED: BACITRACIN 50000 UNITS INJ ONE (14:14)
[2018-07-07] MEDS ORDERED: POLYMYXIN B 500000 UNIT INJ ONE (14:15)
[2018-07-07] MEDS ORDERED: CYANOCOBALAMIN 1000 MCG INJ IM ONE (14:30)
[2018-07-07] MEDS ORDERED: DIPHENHYDRAMINE 50 MG INJ ONE (14:31)
[2018-07-07] MEDS ORDERED: MEPERIDINE 100 MG INJ ONE (14:31)
[2018-07-07] MEDS ORDERED: DEXAMETHASONE 4 MG/ML 5 ML INJ ONE (14:31)
[2018-07-07] MEDS ORDERED: ROCURONIUM 50 MG INJ ONE ×2 (14:36→16:12)
[2018-07-07] MEDS ORDERED: TRANEXAMIC ACID 1GM/100ML(PMX) 100 ML IV ONE ×2 (15:00)
[2018-07-07] MEDS ORDERED: TRANEXAMIC ACID 1GM/100ML(PMX) 100 ML ONE ×2 (15:03→16:13)
[2018-07-07] MEDS ORDERED: EPHEDrine 25 MG/5 ML SYG ONE (15:05)
[2018-07-07] MEDS ORDERED: PHENYLephrine (100 MCG/ML) 10ML SYG ONE (15:11)
[2018-07-07] MEDS ORDERED: DIPHENHYDRAMINE 50 MG INJ IV PRN ×2 (15:30→18:30)
[2018-07-07] MEDS ORDERED: MEPERIDINE 25 MG INJ IV PRN (15:30)
[2018-07-07] MEDS ORDERED: TOBRAMYCIN 1.2 GM POWDER ONE (15:41)
[2018-07-07] MEDS ORDERED: VANCOMYCIN 1 GM INJ ONE (15:41)
[2018-07-07] MEDS ORDERED: LORAZEPAM 2 MG INJ IV ONE (16:00)
[2018-07-07] MEDS ORDERED: METOPROLOL 5 MG INJ ONE (16:02)
[2018-07-07] MEDS ORDERED: GLYCOPYRROLATE 0.4 MG INJ ONE (18:03)
[2018-07-07] MEDS ORDERED: NEOSTIGMINE 3 MG/3 ML SYRINGE ONE (18:03)
[2018-07-07] MEDS ORDERED: DOCUSATE SODIUM 100 MG CAP PO ONE (18:30)
[2018-07-07] MEDS ORDERED: BISACODYL 10 MG SUPP PR PRN (18:30)
[2018-07-07] MEDS ORDERED: MEPERIDINE 25 MG INJ IM PRN (18:30)
[2018-07-07] MEDS ORDERED: NALOXONE (0.4 MG/ML) INJ IV PRN (18:30)
[2018-07-07] MEDS ORDERED: oxyCODONE 5 MG TAB PO PRN (18:30)
[2018-07-07] MEDS ORDERED: SENNA/DOCUSATE NA (8.6MG/50MG) TAB PO PRN (18:30)
[2018-07-07] MEDS ORDERED: NA PHOSPHATE/BIPHOS 133 ML ENEMA PR PRN (18:30)
--- NOTE | 2018-07-07 18:52 | OPR ---
Date/Time of Note Date/Time of Note DATE: 07/07/18 TIME: 18:43 Operative Report Procedure Date: July 07, 2018 Preoperative Diagnosis Right femoral neck fracture Postoperative Diagnosis As above Operation/Procedure Performed Right cemented hip hemiarthroplasty Surgeon see signature line Design Engineer None Anesthesia Type: general, other (Block) Estimated Blood Loss: 200 - 250 ml's Transfusion none Specimen Femoral head Grafts/Implants Depuy: Cemented Piru size 4 high offset Femoral head outer diameter 44 mm. Inner diameter 28+1.5 mm ceramic head Tubes/Drains Medium Hemovac drain exiting anterolateral thigh Complications none Pt Condition Post Procedure: stable Disposition: PACU Procedure Description PREOP DIAGNOSIS: Right femoral neck fracture POSTOP DIAGNOSIS: Same. SURGICAL PROCEDURE: Right cemented hip hemiarthroplasty arthroplasty (CPT code 75531). INDICATIONS: The patient is a 68 year-old woman who presented to the emergency department with a displaced right femoral neck fracture after a fall. No previous open surgical scars. Neurovascularly intact. Radiographs revealed displaced femoral neck fracture. Patient is overall low demand. She lives in assisted living. She uses a walker at all times. She has history of frequent falls. INFORMED CONSENT: The operative procedure was explained using diagrams and/or three-dimensional models. The rehabilitation, the potential risks, benefits and alternatives were discussed at length. Specific risks discussed included but were not limited to excessive blood loss and the need for transfusion and therefore the risk of transmissible disease or transfusion reaction, deep infection and the potential need for repetitive debridements, implant removal, long-term antibiotic therapy, possibly requiring deep venous access, leg-length discrepancy, dislocation, possibly recurrent, with the need for closed versus open reduction, bracing, femoral or acetabular fracture and the need for further surgery for fixation, neurovascular injury with temporary or permanent numbness, tingling, weakness or paralysis, deep venous thrombosis, pulmonary embolism and , persistent pain, weakness, or limp, late aseptic loosening and the need for revision, polyethylene wear-induced osteolysis and related problems, and finally, a wide variety of unanticipated medical problems. The opportunity to ask questions and address any concerns was provided. The patient wished to proceed. FINDINGS: Acute right femoral neck fracture SURGERY IN DETAIL: The patient was taken into the Operating Room and placed supine on the operating table. Preoperatively, they were administered Ancef. They were administered general anesthesia by the Anesthesia Department. The patient was placed on an [facility] Lateral Positioner in a left lateral decubitus position with the right hip superior. An axillary roll was placed, all pressure points were confirmed padded. The right hip region was prepped and draped in sterile fashion. A surgical pause was performed, correctly identifying the patient's name, the correct medical record number, the correct diagnosis, correct surgical procedure, and the correct extremity. 1g of tranexamic acid was dosed at the time of incision A posterolateral skin incision, approximately 15-20 cm in length was made, centered over the greater trochanter, skin and subcutaneous tissue sharply dissected. Deep fascial layer was identified and incised in line with the skin incision. Gluteus medius was retracted anteriorly. Piriformis tendon was identified, tagged with a stitch, and incised close to its insertion. The interval between the gluteus minimus and hip capsule was developed superiorly, and a superior retractor was placed. Short external rotators were subperiosteally incised from the posterior proximal femur to the level of the lesser trochanter and an inferior retractor was placed. A posterior capsulotomy was performed. Two tag stitches were placed in the capsule. The hip was then internally rotated and the femoral neck fracture was visualized. At this time the femoral neck fracture was re-cut at the appropriate level and neck angle. The femur was then retracted anteriorly to expose the acetabulum and femoral head. The corkscrew was used on power into the femoral head followed by the T-handled to remove the femoral head. The femoral head was then sized on the back table. At this time our attention turned towards the femur. Soft tissues were removed from the junction of the greater trochanter and the femoral neck osteotomy. A box osteotome was used lateralize the starting point. A starting awl was utilized, followed by a lateralizing reamer, followed by axial reamers for the Piru system up to a size 4. The femoral canal was then broached up to a size 4. A neutral femoral head was inserted and the hip was reduced. Stability was checked and was less than ideal. It was noted that there was anterior impingement secondary to decreased offset. Some anterior capsule and tissue was debrided. A high offset trial neck was placed. Range of motion and stability were quite good, including forward flexion to greater than 90 degrees, internal rotation greater than 70 degrees at 90 degrees flexion, internal rotation greater than 70 degrees with the hip adducted and at 45 degrees of flexion. External Rotation was also tested, and was stable with no impingement or instability at full extension and 30 degrees external rotation. Intraoperative x-ray revealed the hip to have satisfactory position of all components. The hip was dislocated in controlled manner using a bone hook and the trial components removed. Local anesthetic was injected periarticular. The hip was dislocated in controlled manner using a bone hook and the trial components removed. The femoral canal was then prepared for cementation. Third generation cement technique was utilized. The canal was copiously irrigated followed by a cement restrictor placed approximately 2 cm distal to the planned end of the stem. A canal brush was used to remove loose debris and bone followed by vaginal packing. A lap was placed in the acetabulum to protect it from cement. Once the cement was ready the vaginal packing was removed remaining fluid was suctioned from the canal and cement was placed in the canal backfilling until all the cement was utilized and was then further pressurized. The cemented Piru size 4 I have sent offset was then inserted into the cement care was taken to keep the stem out of varus and to keep appropriate anteversion. The stem was held in position while the cement dried and excess cement was removed. A 44 mm cobalt chrome outer head with a 28 mm +1.5 mm inner ceramic head head was inserted onto the taper. The hip was reduced. One final time range of motion, stability, and soft tissue tension were satisfactory. The wound was thoroughly irrigated. 1g of tranexamic acid was dosed. The previously tagged arthrotomy, as well as the piriformis tendon was reattached to the gluteus medius at the level the greater trochanter. The deep fascial layer was closed with 1 Vicryl in a [id number], interrupted fashion, deep subcutaneous tissues irrigated and closed with 0 Vicryl interrupted fashion, subcutaneous tissues irrigated, closed with 2-0 Vicryl in an inverted, interrupted fashion. The skin was closed with niki. A sterile dressing was applied, abduction pillow was placed between the legs, and the patient was transferred to a supine position. Postoperative clinical leg lengths, rotation of limb were neutral and symmetric. All Counts were correct x2 DISPOSITION: Patient transferred to PACU in stable condition. The patient will be weight bearing as tolerated on the operative extremity. PT will begin POD#0 if available. Posterior hip precautions for 3 months with an abduction pillow. Postoperative AP pelvis will be ordered in PACU. Bilateral knee high SCDs will be worn while admitted. [Lovenox 40mg Daily will be given for DVT prophylaxis for 6 weeks. Pain will be controlled with medication. The patient will follow up in clinic in approximately 2 weeks. Implant: DePuy: Femoral stem: Piru cemented size 4, high offset Femoral outer head: 44 mm cobalt chrome Femoral inner head: 28 +1.5 mm ceramic NISH CORBETT MD July 07, 2018 18:52
[2018-07-07] MEDS: CEFAZOLIN 2 GM/50 ML (PMX) 50 ML IVPB SCH (19:20)
[2018-07-07] MEDS: oxyCODONE 5 MG TAB PO PRN (19:37)
[2018-07-07] MEDS: LACTATED RINGER'S 1,000 ML IV SCH (19:41)
[2018-07-07] MEDS ORDERED: FENTAnyl 50 MCG/ML VIAL IV PRN ×3 (20:30)
[2018-07-07] MEDS ORDERED: HEPARIN 5,000 UNIT/1 ML VIAL SC SCH (21:00)
[2018-07-07] MEDS: LATANOPROST 0.005% 2.5 ML OPH BOTH EYES SCH ×2 (21:00→22:19)
[2018-07-07] MEDS: GABAPENTIN 300 MG CAP PO SCH ×2 (21:00→22:19)
[2018-07-07] MEDS: METOPROLOL (XL) 100 MG TAB PO SCH ×2 (21:00→22:37)
[2018-07-07] MEDS ORDERED: oxyCODONE (CR) 40 MG TAB [oxyCONTIN] PO SCH (21:00)
[2018-07-07] MEDS: oxyCODONE (CR) 20 MG TAB [oxyCONTIN] PO SCH (22:12)
[2018-07-07] MEDS: SENNA TAB PO SCH (22:20)
[2018-07-07] MEDS: traZODone 100 MG TAB PO SCH (22:20)
[2018-07-07] MEDS: hydrOXYzine HCL 25 MG TAB PO SCH (22:20)
[2018-07-07] MEDS: DOCUSATE SODIUM 100 MG CAP PO SCH (22:20)
[2018-07-07] MEDS: FAMOTIDINE 20 MG TAB PO SCH (22:21)
[2018-07-07] MEDS: ARIPIPRAZOLE 5 MG TAB PO SCH (22:21)
[2018-07-07] MEDS: TOPIRAMATE 25 MG TAB PO SCH (22:21)
[2018-07-07] MEDS: ACETAMINOPHEN 500 MG TAB PO SCH (22:22)
[2018-07-08] VITALS: BP 80/52; PULSE 71; RESP 18
[2018-07-08] MEDS ORDERED: SOD CHLORIDE 0.9% 250 ML IV ONE ×3 (00:30→01:30)
[2018-07-08] MEDS: CEFAZOLIN 2 GM/50 ML (PMX) 50 ML IVPB SCH ×2 (02:44→11:22)
[2018-07-08 02:48] VITALS: BP 113/64; PULSE 64
[2018-07-08 04:00] VITALS: BP 112/60; PULSE 60; RESP 18
[2018-07-08] MEDS: PANTOPRAZOLE (EC) 40 MG TAB PO SCH (05:24)
[2018-07-08] MEDS: ACETAMINOPHEN 500 MG TAB PO SCH ×4 (05:24→21:17)
[2018-07-08] MEDS: VANCOMYCIN 1 GM (PMX) 250 ML IVPB SCH ×2 (05:27→17:14)
[2018-07-08] MEDS: LACTATED RINGER'S 1,000 ML IV SCH ×2 (06:08→17:16)
[2018-07-08] MEDS: oxyCODONE 15 MG TAB PO PRN ×4 (06:16→19:08)
[2018-07-08 07:20] VITALS: BP 113/60; PULSE 73; RESP 19
--- NOTE | 2018-07-08 07:35 | PAC ---
Date/Time of Note Date/Time of Note DATE: 07/08/18 TIME: 07:34 Post-Anesthesia Notes Post-Anesthesia Note Last documented vital signs Vital Signs Date Temp Pulse Resp B/P (MAP) Pulse Ox O2 O2 Flow FiO2 Time Delivery Rate 07/08/18 98.3 73 19 113/60 100 Room Air 07:20 (77) 07/07/18 2.0 21:30 Activity: WNL Respiratory function: WNL Cardiovascular function: WNL Mental status: Baseline Pain reasonably controlled: Yes Hydration appropriate: Yes Nausea/Vomiting absent: No CLAUDIA BAEZ MD July 08, 2018 07:35
[2018-07-08] MEDS: ESCITALOPRAM 10 MG TAB PO SCH (08:54)
[2018-07-08] MEDS: POTASSIUM CHLORIDE 20 MEQ POWDER FOR ORAL SOLN PO SCH (08:54)
[2018-07-08] MEDS: hydrOXYzine HCL 25 MG TAB PO SCH ×2 (08:54→21:04)
[2018-07-08] MEDS: FAMOTIDINE 20 MG TAB PO SCH ×2 (08:54→21:03)
[2018-07-08] MEDS: oxyCODONE (CR) 20 MG TAB [oxyCONTIN] PO SCH ×2 (08:55→21:04)
[2018-07-08] MEDS: DULOXETINE 30 MG CAP DR PO SCH (08:55)
[2018-07-08] MEDS: CHOLECALCIFEROL 2,000 UNIT CAP PO SCH (08:55)
[2018-07-08] MEDS: BUPROPION (XL) 150 MG TAB PO SCH (08:55)
[2018-07-08] MEDS ORDERED: AMLODIPINE 5 MG TAB PO SCH (09:00)
[2018-07-08] MEDS ORDERED: BUPROPION (XL) 150 MG TAB PO SCH (09:00)
[2018-07-08] MEDS ORDERED: oxyCODONE (CR) 20 MG TAB [oxyCONTIN] PO SCH (09:00)
--- NOTE | 2018-07-08 11:35 | PN ---
Date/Time of Note Date/Time of Note DATE: 07/08/18 TIME: 11:34 Assessment/Plan VTE Prophylaxis Risk score (from Nsg)>0 risk: 10 SCD applied (from Nsg): Yes Pharmacological prophylaxis: LMWH Lines/Catheters IV Catheter Type (from Nrsg): Peripheral IV Urinary Cath still in place: Yes Reason Cath still needed: other (indicate) Assessment/Plan Hospital Course SUBJECTIVE: POD #1. No acute distress. No fevers. OBJECTIVE: Vital signs-see below PHYSICAL EXAM: Constitutional: Adequately built,not in acute distress. HEENT: Head atraumatic and normocephalic. Eyes: Extraocular muscles intact. Anicteric sclerae. Pupils equal bilaterally, reactive to light. NECK: Supple without lymph node. CHEST: Clear and good breath sounds equally. No wheezing. No rhonchi. HEART: S1, S2. Regular rate and rhythm. ABDOMEN: Soft/non tender with no rebound tenderness. Bowel sounds were present. EXTREMITIES: R hip dressing c/d/i. no cyanosis, clubbing or edema. NEUROLOGIC: Alert and oriented x3. No focal deficit. No sensory deficit. PSYCHOSOCIAL: No signs of depression. INTEGUMENTARY: No open wounds. ASSESSMENT AND PLAN: 68-yo f w/htn,fibromyalgia, lumbar spinal fusion arvizu rgery,depression, admitted with mechanical fall/ R displaced femoral neck fracture... 1. Right displaced femoral neck fracture -Status post R Hip hemiarthroplasty 07/07/2018 -dvt ppx (I will start Lovenox per surgical note recommendation), pain control 2. Essential hypertension -Too tight control, blood pressure dropped to 80s last night. Recommend Toprol down to 50 mg daily. Hold all other antihypertensive. 3. Depression -on Trazadon/Lexapro/Cymbalta 4. Fibromyalgia -cont.pain mgmt 5. Chronic anemia -HH Stable 6. Debility -Family requesting snf options. Will await for PT final recommendations for appropriate displacement. DVT prophylaxis: We will start Lovenox per orthopedic recommendation for 6 weeks. PUD prophylaxis: Pepcid. Disposition: Continue with rehab. Follow-up orthopedic/PT recommendation on final displacement. Patient was seen in collaboration with Dr. Jonas. Result Diagram: 07/08/18 0423 07/08/18 0423 Results 24hrs Laboratory Tests Test 07/08/18 00:08 07/08/18 04:20 07/08/18 04:23 Hemoglobin 9.1 #L 9.3 L Hematocrit 27.5 #L 28.9 L Iron Level 19 L Total Iron Binding Capacity Pending Percent Iron Saturation Pending White Blood Count 8.7 Red Blood Count 2.95 #L Mean Corpuscular Volume 98.0 Mean Corpuscular Hemoglobin 31.5 Mean Corpuscular Hemoglobin Concent 32.2 Red Cell Distribution Width 13.0 Platelet Count 124 #L Mean Platelet Volume 12.2 H Immature Granulocytes % 0.600 H Neutrophils % 82.6 H Lymphocytes % 11.0 L Monocytes % 5.5 Eosinophils % 0.2 Basophils % 0.1 Nucleated Red Blood Cells % 0.0 Immature Granulocytes # 0.050 H Neutrophils # 7.2 Lymphocytes # 1.0 Monocytes # 0.5 Eosinophils # 0.0 Basophils # 0.0 Nucleated Red Blood Cells # 0.0 Prothrombin Time 12.9 Prothrombin Time Ratio 1.0 INR International Normalized Ratio 0.96 Sodium Level 143 Potassium Level 3.8 Chloride Level 109 Carbon Dioxide Level 29 Anion Gap 5 Blood Urea Nitrogen 11 Creatinine 0.68 Est Glomerular Filtrat Rate mL/min > 60 Glucose Level 112 Calcium Level 8.2 L Phosphorus Level 4.6 Magnesium Level 1.7 Total Bilirubin 0.2 Direct Bilirubin 0.00 Indirect Bilirubin 0.2 Aspartate Amino Transf (AST/SGOT) 22 Alanine Aminotransferase (ALT/SGPT) 23 Alkaline Phosphatase 57 Total Protein 5.2 L Albumin 2.6 L Globulin 2.60 Albumin/Globulin Ratio 1.00 Triglycerides Level 113 Cholesterol Level 154 LDL Cholesterol, Calculated 82 HDL Cholesterol 49 Cholesterol/HDL Ratio 3.1 Thyroid Stimulating Hormone (TSH) 0.993 Exam/Review of Systems Exam Vitals Vital Signs Date Temp Pulse Resp B/P (MAP) Pulse Ox O2 O2 Flow FiO2 Time Delivery Rate 07/08/18 98.3 73 19 113/60 100 Room Air 07:20 (77) 07/07/18 2.0 21:30 Intake and Output 07/07/18 07/07/18 07/08/18 1515:00 23:00 07:00 IntakeIntake Total 2000 ml 1440 ml OutputOutput Total 855 ml 1210 ml BalanceBalance 1145 ml 230 ml Results Results 24hrs Laboratory Tests Test 07/08/18 00:08 07/08/18 04:20 07/08/18 04:23 Hemoglobin 9.1 #L 9.3 L Hematocrit 27.5 #L 28.9 L Iron Level 19 L Total Iron Binding Capacity Pending Percent Iron Saturation Pending White Blood Count 8.7 Red Blood Count 2.95 #L Mean Corpuscular Volume 98.0 Mean Corpuscular Hemoglobin 31.5 Mean Corpuscular Hemoglobin Concent 32.2 Red Cell Distribution Width 13.0 Platelet Count 124 #L Mean Platelet Volume 12.2 H Immature Granulocytes % 0.600 H Neutrophils % 82.6 H Lymphocytes % 11.0 L Monocytes % 5.5 Eosinophils % 0.2 Basophils % 0.1 Nucleated Red Blood Cells % 0.0 Immature Granulocytes # 0.050 H Neutrophils # 7.2 Lymphocytes # 1.0 Monocytes # 0.5 Eosinophils # 0.0 Basophils # 0.0 Nucleated Red Blood Cells # 0.0 Prothrombin Time 12.9 Prothrombin Time Ratio 1.0 INR International Normalized Ratio 0.96 Sodium Level 143 Potassium Level 3.8 Chloride Level 109 Carbon Dioxide Level 29 Anion Gap 5 Blood Urea Nitrogen 11 Creatinine 0.68 Est Glomerular Filtrat Rate mL/min > 60 Glucose Level 112 Calcium Level 8.2 L Phosphorus Level 4.6 Magnesium Level 1.7 Total Bilirubin 0.2 Direct Bilirubin 0.00 Indirect Bilirubin 0.2 Aspartate Amino Transf (AST/SGOT) 22 Alanine Aminotransferase (ALT/SGPT) 23 Alkaline Phosphatase 57 Total Protein 5.2 L Albumin 2.6 L Globulin 2.60 Albumin/Globulin Ratio 1.00 Triglycerides Level 113 Cholesterol Level 154 LDL Cholesterol, Calculated 82 HDL Cholesterol 49 Cholesterol/HDL Ratio 3.1 Thyroid Stimulating Hormone (TSH) 0.993 Medications Medication Current Medications IV Flush (NS 3 ml) 3 ml PER PROTOCOL IV ; Start 07/07/18 at 09:30 Ondansetron HCl (Zofran Tab) 4 mg Q6H PRN PO NAUSEA/VOMITING; Start 07/07/18 at 09:30 Acetaminophen (Tylenol Tab) 650 mg Q6H PRN PO .PAIN 1-3 OR TEMP; Start 07/07/18 at 09:30 Magnesium Hydroxide (Milk Of Mag) 30 ml DAILY PRN PO .CONSTIPATION; Start 07/07/18 at 09:30 Zolpidem Tartrate (Ambien) 5 mg QHS PRN PO .INSOMNIA; Start 07/07/18 at 09:30 Famotidine (Pepcid) 20 mg Q12 PO Last administered on 07/08/18 08:54; Admin Dose 20 MG; Start 07/07/18 at 21:00 Amlodipine Besylate (Norvasc) 5 mg DAILY PO ; Start 07/08/18 at 09:00; Status Hold Clonidine (Catapres) 0.1 mg DAILY PRN PO ELEVATED BLOOD PRESSURE; Start 07/07/18 at 09:30; Status Hold Docusate Sodium (Colace) 250 mg DAILY PRN PO CONSTIPATION; Start 07/07/18 at 09:30 Escitalopram Oxalate (Lexapro) 20 mg DAILY PO Last administered on 07/08/18 08:54; Admin Dose 20 MG; Start 07/08/18 at 09:00 Hydroxyzine HCl (Atarax) 50 mg BID PO Last administered on 07/08/18 08:54; Admin Dose 50 MG; Start 07/07/18 at 21:00 Lidocaine (Lidoderm) 1 patch HS PRN TD ANESTHESIA; Start 07/07/18 at 09:30 Metoprolol Succinate (Toprol Xl) 100 mg BID PO Last administered on 07/07/18 22:37; Admin Dose 100 MG; Start 07/07/18 at 21:00; Status Hold Potassium Chloride (Potassium Chloride Pwd/Soln) 20 meq DAILY PO Last administered on 07/08/18 08:54; Admin Dose 20 MEQ; Start 07/08/18 at 09:00 Senna (Senokot) 1 tab HS PO Last administered on 07/07/18 22:20; Admin Dose 1 TAB; Start 07/07/18 at 21:00 Trazodone HCl (Desyrel) 300 mg HS PO Last administered on 07/07/18 22:20; Admin Dose 300 MG; Start 07/07/18 at 21:00 Bupropion HCl (Wellbutrin Xl) 300 mg DAILY PO Last administered on 07/08/18 08 :55; Admin Dose 300 MG; Start 07/08/18 at 09:00 Topiramate (Topamax) 25 mg QHS PO Last administered on 07/07/18 22:21; Admin Dose 25 MG; Start 07/07/18 at 21:00 Latanoprost (Xalatan) 1 drop HS BOTH EYES Last administered on 07/07/18 22:19; Admin Dose 1 DROP; Start 07/07/18 at 21:00 Aripiprazole (Abilify) 5 mg QHS PO Last administered on 07/07/18 22:21; Admin Dose 5 MG; Start 07/07/18 at 21:00 Duloxetine HCl (Cymbalta) 60 mg QAM PO Last administered on 07/08/18 08:55; Admin Dose 60 MG; Start 07/08/18 at 09:00 Cholecalciferol (Vitamin D) 2,000 unit QAM PO Last administered on 07/08/18 08:55; Admin Dose 2,000 UNIT; Start 07/08/18 at 09:00 Lactated Ringer's 1,000 ml @ 80 mls/hr [id number] IV Last administered on 07/07/18 19:41; Admin Dose 80 MLS/HR; Start 07/07/18 at 18:30 Oxycodone HCl (Roxicodone) 10 mg Q4H PRN PO .PAIN Last administered on 07/07/18 19:37; Admin Dose 10 MG; Start 07/07/18 at 18:30 Oxycodone HCl (Roxicodone) 5 mg Q4H PRN PO .PAIN; Start 07/07/18 at 18:30 Acetaminophen (Tylenol Tab) 1,000 mg Q8 PO Last administered on 07/07/18 22:22; Admin Dose 1,000 MG; Start 07/07/18 at 22:00 Ondansetron HCl (Zofran Inj) 4 mg Q4H PRN IV NAUSEA/VOMITING; Start 07/07/18 at 18:30 Vancomycin HCl 250 ml @ 125 mls/hr Q12H IVPB Last administered on 07/08/18 05:27; Admin Dose 125 MLS/HR; Start 07/08/18 at 06:00; Stop 07/08/18 at 19:59 Gabapentin (Neurontin) 300 mg QHS PO ; Start 07/07/18 at 21:00 Pantoprazole (Protonix Tab) 40 mg DAILY@06 PO ; Start 07/08/18 at 06:00 Docusate Sodium (Colace) 200 mg BID PO Last administered on 07/07/18 22:20; Admin Dose 200 MG; Start 07/08/18 at 09:00; Stop 07/10/18 at 21:01 Simethicone (Mylicon) 80 mg TID PRN PO .GAS; Start 07/07/18 at 18:30 Senna/Docusate Sodium (Senokot-S) 2 tab BID PRN PO .CONSTIPATION; Start 07/07/18 at 18:30 Magnesium Hydroxide (Milk Of Mag) 30 ml HS PRN PO .CONSTIPATION; Start 07/07/18 at 18:30 Bisacodyl (Dulcolax Supp) 10 mg DAILY PRN [place] .CONSTIPATION; Start 07/07/18 at 18:30 Sodium Biphosphate/ Sodium Phosphate (Fleet Enema) 133 ml DAILY PRN [place] .CONSTIPATION; Start 07/07/18 at 18:30 Diphenhydramine HCl (Benadryl) 25 mg Q4H PRN IV .ITCHING; Start 07/07/18 at 18:30 Naloxone HCl (Narcan) 0.2 mg Q2M PRN IV .RESP RATE; Start 07/07/18 at 18:30 Oxycodone HCl (Roxicodone) 15 mg Q4H PRN PO MODERATE PAIN LEVEL 4-6 Last administered on 07/08/18at 06:16; Admin Dose 15 MG; Start 07/07/18 at 18:30 Meperidine HCl (Demerol) 25 mg Q4H PRN IM BREAKTHROUGH PAIN; Start 07/07/18 at 18:30 Oxycodone HCl (Oxycontin) 40 mg Q12 PO Last administered on 07/08/18at 08:55; Admin Dose 40 MG; Start 07/07/18 at 22:12 KOBI RICE NP July 08, 2018 11:35
[2018-07-08] MEDS: ENOXAPARIN 40 MG/0.4 ML SYG SC SCH (14:01)
[2018-07-08 15:16] VITALS: BP 131/73; PULSE 99; RESP 18
[2018-07-08 19:44] VITALS: BP 151/73; PULSE 102; RESP 18
[2018-07-08] MEDS: GABAPENTIN 300 MG CAP PO SCH (21:00)
[2018-07-08] MEDS: ARIPIPRAZOLE 5 MG TAB PO SCH (21:03)
[2018-07-08] MEDS: DOCUSATE SODIUM 100 MG CAP PO SCH (21:03)
[2018-07-08] MEDS: SENNA TAB PO SCH (21:04)
[2018-07-08] MEDS: traZODone 100 MG TAB PO SCH (21:04)
[2018-07-08] MEDS: TOPIRAMATE 25 MG TAB PO SCH (21:04)
[2018-07-08] MEDS: LATANOPROST 0.005% 2.5 ML OPH BOTH EYES SCH (21:05)
[2018-07-09] MEDS: oxyCODONE 15 MG TAB PO PRN ×4 (02:09→14:36)
[2018-07-09 02:17] VITALS: BP 133/63; PULSE 102; RESP 18
[2018-07-09] MEDS: PANTOPRAZOLE (EC) 40 MG TAB PO SCH (06:57)
[2018-07-09] MEDS: LACTATED RINGER'S 1,000 ML IV SCH ×2 (08:00→20:30)
[2018-07-09 08:25] VITALS: BP 101/60; PULSE 106; RESP 18
[2018-07-09] MEDS: ENOXAPARIN 40 MG/0.4 ML SYG SC SCH (09:00)
[2018-07-09] MEDS ORDERED: METOPROLOL (XL) 50 MG TAB PO SCH (09:00)
[2018-07-09] MEDS: BUPROPION (XL) 150 MG TAB PO SCH (09:40)
[2018-07-09] MEDS: POTASSIUM CHLORIDE 20 MEQ POWDER FOR ORAL SOLN PO SCH (09:40)
[2018-07-09] MEDS: hydrOXYzine HCL 25 MG TAB PO SCH ×2 (09:40→21:04)
[2018-07-09] MEDS: DOCUSATE SODIUM 100 MG CAP PO SCH ×2 (09:40→21:03)
[2018-07-09] MEDS: DULOXETINE 30 MG CAP DR PO SCH (09:40)
[2018-07-09] MEDS: CHOLECALCIFEROL 2,000 UNIT CAP PO SCH (09:40)
[2018-07-09] MEDS: oxyCODONE (CR) 20 MG TAB [oxyCONTIN] PO SCH ×2 (09:40→21:05)
[2018-07-09] MEDS: ESCITALOPRAM 10 MG TAB PO SCH (09:40)
[2018-07-09] MEDS: FAMOTIDINE 20 MG TAB PO SCH ×2 (09:40→21:04)
[2018-07-09] MEDS: METOPROLOL (XL) 50 MG TAB PO SCH ×2 (09:41→21:13)
--- NOTE | 2018-07-09 12:17 | PN ---
Date/Time of Note Date/Time of Note DATE: 07/09/18 TIME: 12:12 Assessment/Plan VTE Prophylaxis Risk score (from Nsg)>0 risk: 10 SCD applied (from Nsg): Yes Pharmacological prophylaxis: LMWH Lines/Catheters IV Catheter Type (from Nrsg): Peripheral IV Urinary Cath still in place: Yes Reason Cath still needed: other (indicate) Assessment/Plan Hospital Course SUBJECTIVE: POD #2. RN reported some ozzing from L hip incision site. Had low grade fevers this morning.. OBJECTIVE: Vital signs-see below PHYSICAL EXAM: Constitutional: Adequately built,not in acute distress. HEENT: Head atraumatic and normocephalic. Eyes: Extraocular muscles intact. Anicteric sclerae. Pupils equal bilaterally, reactive to light. NECK: Supple without lymph node. CHEST: Clear and good breath sounds equally. No wheezing. No rhonchi. HEART: S1, S2. Regular rate and rhythm. ABDOMEN: Soft/non tender with no rebound tenderness. Bowel sounds were present. EXTREMITIES: R hip dressing soaked w/bloody drainage. Hemovac draining moderate blood. A small hematoma is appreciated. no cyanosis, clubbing or edema. NEUROLOGIC: Alert and oriented x3. No focal deficit. No sensory deficit. PSYCHOSOCIAL: No signs of depression. INTEGUMENTARY: No open wounds. ASSESSMENT AND PLAN: 68-yo f w/htn,fibromyalgia, lumbar spinal fusion surgery,depression, admitted with mechanical fall/ R displaced femoral neck fracture... 1. Right displaced femoral neck fracture -Status post R Hip hemiarthroplasty 07/07/2018 -Postop management per orthopedic team -dvt ppx (hold today's dose 2/2 site bleeding and will resume tomorrow if stable), pain control 2. Essential hypertension -change BB dose to 50 bid. 3. Depression -on Trazodone/Lexapro/Cymbalta 4. Fibromyalgia -cont.pain mgmt 5. Acute on chronic anemia -Hemoglobin dropped to 8.2 postoperatively likely secondary to site bleeding. Continue monitoring this. No need for transfusion currently. Hold today's Lovenox dose. -HH Stable 6. Debility -SNF placement when medical work up completed. DVT prophylaxis: We will start Lovenox per orthopedic recommendation for 6 weeks. PUD prophylaxis: Pepcid. Disposition: Continue with rehab. Follow-up orthopedic/PT recommendation on final displacement. Monitor drain output and H&H closely. Patient was seen in collaboration with Dr. Jonas. Result Diagram: 07/09/18 1111 07/09/18 0512 Results 24hrs Laboratory Tests Test 07/09/18 05:12 07/09/18 11:11 Prothrombin Time 12.9 Prothrombin Time Ratio 1.0 INR International Normalized Ratio 0.96 Sodium Level 139 Potassium Level 3.2 L Chloride Level 106 Carbon Dioxide Level 31 Anion Gap 2 L Blood Urea Nitrogen 10 Creatinine 0.73 Est Glomerular Filtrat Rate mL/min > 60 Glucose Level 97 Calcium Level 8.4 White Blood Count 6.1 # Red Blood Count 2.62 L Hemoglobin 8.2 L Hematocrit 26.1 L Mean Corpuscular Volume 99.6 Mean Corpuscular Hemoglobin 31.3 Mean Corpuscular Hemoglobin Concent 31.4 L Red Cell Distribution Width 13.2 Platelet Count 112 L Mean Platelet Volume 12.2 H Immature Granulocytes % 0.300 Neutrophils % 66.2 Lymphocytes % 24.2 Monocytes % 8.1 Eosinophils % 1.0 Basophils % 0.2 Nucleated Red Blood Cells % 0.0 Immature Granulocytes # 0.020 Neutrophils # 4.0 Lymphocytes # 1.5 Monocytes # 0.5 Eosinophils # 0.1 Basophils # 0.0 Nucleated Red Blood Cells # 0.0 Exam/Review of Systems Exam Vitals Vital Signs Date Temp Pulse Resp B/P (MAP) Pulse Ox O2 O2 Flow FiO2 Time Delivery Rate 07/09/18 98.9 106 18 101/60 95 Room Air 08:25 (74) 07/08/18 2.0 21:30 Intake and Output 07/08/18 07/08/18 07/09/18 1414:59 22:59 06:59 IntakeIntake Total 300 ml 1950 ml 1150 ml OutputOutput Total 70 ml 700 ml BalanceBalance 300 ml 1880 ml 450 ml Results Results 24hrs Laboratory Tests Test 07/09/18 05:12 07/09/18 11:11 Prothrombin Time 12.9 Prothrombin Time Ratio 1.0 INR International Normalized Ratio 0.96 Sodium Level 139 Potassium Level 3.2 L Chloride Level 106 Carbon Dioxide Level 31 Anion Gap 2 L Blood Urea Nitrogen 10 Creatinine 0.73 Est Glomerular Filtrat Rate mL/min > 60 Glucose Level 97 Calcium Level 8.4 White Blood Count 6.1 # Red Blood Count 2.62 L Hemoglobin 8.2 L Hematocrit 26.1 L Mean Corpuscular Volume 99.6 Mean Corpuscular Hemoglobin 31.3 Mean Corpuscular Hemoglobin Concent 31.4 L Red Cell Distribution Width 13.2 Platelet Count 112 L Mean Platelet Volume 12.2 H Immature Granulocytes % 0.300 Neutrophils % 66.2 Lymphocytes % 24.2 Monocytes % 8.1 Eosinophils % 1.0 Basophils % 0.2 Nucleated Red Blood Cells % 0.0 Immature Granulocytes # 0.020 Neutrophils # 4.0 Lymphocytes # 1.5 Monocytes # 0.5 Eosinophils # 0.1 Basophils # 0.0 Nucleated Red Blood Cells # 0.0 Medications Medication Current Medications IV Flush (NS 3 ml) 3 ml PER PROTOCOL IV ; Start 07/07/18 at 09:30 Ondansetron HCl (Zofran Tab) 4 mg Q6H PRN PO NAUSEA/VOMITING; Start 07/07/18 at 09:30 Acetaminophen (Tylenol Tab) 650 mg Q6H PRN PO .PAIN 1-3 OR TEMP; Start 07/07/18 at 09:30 Magnesium Hydroxide (Milk Of Mag) 30 ml DAILY PRN PO .CONSTIPATION; Start 07/07/18 at 09:30 Zolpidem Tartrate (Ambien) 5 mg QHS PRN PO .INSOMNIA; Start 07/07/18 at 09:30 Famotidine (Pepcid) 20 mg Q12 PO Last administered on 07/09/18at 09:40; Admin Dose 20 MG; Start 07/07/18 at 21:00 Amlodipine Besylate (Norvasc) 5 mg DAILY PO ; Start 07/08/18 at 09:00; Status Ho ld Clonidine (Catapres) 0.1 mg DAILY PRN PO ELEVATED BLOOD PRESSURE; Start 07/07/18 at 09:30; Status Hold Docusate Sodium (Colace) 250 mg DAILY PRN PO CONSTIPATION; Start 07/07/18 at 09:30 Escitalopram Oxalate (Lexapro) 20 mg DAILY PO Last administered on 07/09/18at 09:40; Admin Dose 20 MG; Start 07/08/18 at 09:00 Hydroxyzine HCl (Atarax) 50 mg BID PO Last administered on 07/09/18at 09:40; Admin Dose 50 MG; Start 07/07/18 at 21:00 Lidocaine (Lidoderm) 1 patch HS PRN TD ANESTHESIA; Start 07/07/18 at 09:30 Potassium Chloride (Potassium Chloride Pwd/Soln) 20 meq DAILY PO Last administered on 07/09/18 09:40; Admin Dose 20 MEQ; Start 07/08/18 at 09:00 Senna (Senokot) 1 tab HS PO Last administered on 07/08/18 21:04; Admin Dose 1 TAB; Start 07/07/18 at 21:00 Trazodone HCl (Desyrel) 300 mg HS PO Last administered on 07/08/18 21:04; Admin Dose 300 MG; Start 07/07/18 at 21:00 Bupropion HCl (Wellbutrin Xl) 300 mg DAILY PO Last administered on 07/09/18 09:40; Admin Dose 300 MG; Start 07/08/18 at 09:00 Topiramate (Topamax) 25 mg QHS PO Last administered on 07/08/18 21:04; Admin Dose 25 MG; Start 07/07/18 at 21:00 Latanoprost (Xalatan) 1 drop HS BOTH EYES Last administered on 07/08/18 21:05; Admin Dose 1 DROP; Start 07/07/18 at 21:00 Aripiprazole (Abilify) 5 mg QHS PO Last administered on 07/08/18 21:03; Admin Dose 5 MG; Start 07/07/18 at 21:00 Duloxetine HCl (Cymbalta) 60 mg QAM PO Last administered on 07/09/18 09:40; Admin Dose 60 MG; Start 07/08/18 at 09:00 Cholecalciferol (Vitamin D) 2,000 unit QAM PO Last administered on 07/09/18 09:40; Admin Dose 2,000 UNIT; Start 07/08/18 at 09:00 Lactated Ringer's 1,000 ml @ 80 mls/hr [id number] IV Last administered on 07/08/18 17:16; Admin Dose 80 MLS/HR; Start 07/07/18 at 18:30 Oxycodone HCl (Roxicodone) 10 mg Q4H PRN PO .PAIN Last administered on 07/07/18 19:37; Admin Dose 10 MG; Start 07/07/18 at 18:30 Oxycodone HCl (Roxicodone) 5 mg Q4H PRN PO .PAIN; Start 07/07/18 at 18:30 Acetaminophen (Tylenol Tab) 1,000 mg Q8 PO Last administered on 07/07/18at 22:22; Admin Dose 1,000 MG; Start 07/07/18 at 22:00 Ondansetron HCl (Zofran Inj) 4 mg Q4H PRN IV NAUSEA/VOMITING; Start 07/07/18 at 18:30 Gabapentin (Neurontin) 300 mg QHS PO ; Start 07/07/18 at 21:00 Pantoprazole (Protonix Tab) 40 mg DAILY@06 PO Last administered on 07/09/18at 06:57; Admin Dose 40 MG; Start 07/08/18 at 06:00 Docusate Sodium (Colace) 200 mg BID PO Last administered on 07/09/18at 09:40; Admin Dose 200 MG; Start 07/08/18 at 09:00; Stop 07/10/18 at 21:01 Simethicone (Mylicon) 80 mg TID PRN PO .GAS; Start 07/07/18 at 18:30 Senna/Docusate Sodium (Senokot-S) 2 tab BID PRN PO .CONSTIPATION; Start 07/07/18 at 18:30 Magnesium Hydroxide (Milk Of Mag) 30 ml HS PRN PO .CONSTIPATION; Start 07/07/18 at 18:30 Bisacodyl (Dulcolax Supp) 10 mg DAILY PRN [place] .CONSTIPATION; Start 07/07/18 at 18:30 Sodium Biphosphate/ Sodium Phosphate (Fleet Enema) 133 ml DAILY PRN [place] .CONSTIPATION; Start 07/07/18 at 18:30 Diphenhydramine HCl (Benadryl) 25 mg Q4H PRN IV .ITCHING; Start 07/07/18 at 18:30 Naloxone HCl (Narcan) 0.2 mg Q2M PRN IV .RESP RATE; Start 07/07/18 at 18:30 Oxycodone HCl (Roxicodone) 15 mg Q4H PRN PO MODERATE PAIN LEVEL 4-6 Last administered on 07/09/18at 10:51; Admin Dose 15 MG; Start 07/07/18 at 18:30 Meperidine HCl (Demerol) 25 mg Q4H PRN IM BREAKTHROUGH PAIN; Start 07/07/18 at 18:30 Oxycodone HCl (Oxycontin) 40 mg Q12 PO Last administered on 07/09/18at 09:40; Admin Dose 40 MG; Start 07/07/18 at 22:12 Enoxaparin Sodium (Lovenox) 40 mg DAILY SC Last administered on 07/08/18at 14:01; Admin Dose 40 MG; Start 07/08/18 at 11:30 Metoprolol Succinate (Toprol Xl) 50 mg Q12H PO Last administered on 07/09/18at 09:41; Admin Dose 50 MG; Start 07/09/18 at 09:00 KOBI RICE NP July 09, 2018 12:17
[2018-07-09] MEDS ORDERED: SOD CHLORIDE 0.9% 250 ML IV ONE (12:30)
[2018-07-09] MEDS: ACETAMINOPHEN 500 MG TAB PO SCH ×3 (14:00→21:17)
[2018-07-09 15:27] VITALS: BP 114/68; PULSE 99; RESP 18
--- NOTE | 2018-07-09 18:34 | PN ---
Date/Time of Note Date/Time of Note DATE: 07/09/18 TIME: 18:33 Assessment/Plan Lines/Catheters IV Catheter Type (from Nrsg): Peripheral IV Bernal in Place (from Nrsg): Yes Assessment/Plan Chief Complaint/Hosp Course 68-year-old female POD#2 s/p right hip hemiarthroplasty We will likely DC Hemovac tomorrow 07/10/2018 -Post op H&H stable -PT/OT. Posterior Hip Precautions -Joints pain control protocol -DVT prophylaxis: SCD's, Lovenox 40 mg daily x6 weeks -Weight bearing status: as tolerated -Post-op XR ordered -Abx: 24h vanc/ancef -Diet: ADAT -Bernal: DC'd tomorrow morning -Discharge planning consult Patient is to follow-up in my clinic in 2 weeks. Subjective 24 Hr Interval Summary Patient doing well No acute events overnight Pain is well controlled Exam/Review of Systems Vital Signs Vitals Vital Signs Date Temp Pulse Resp B/P (MAP) Pulse Ox O2 O2 Flow FiO2 Time Delivery Rate 07/09/18 98.4 99 18 114/68 94 Room Air 15:27 (83) 07/08/18 2.0 21:30 Intake and Output 07/08/18 07/08/18 07/09/18 1414:59 22:59 06:59 IntakeIntake Total 300 ml 1950 ml 1150 ml OutputOutput Total 70 ml 700 ml BalanceBalance 300 ml 1880 ml 450 ml Exam Free Text/Dictation Right lower extremity: Dressing: clean, dry, and intact, no erythema. The Hemovac dressing is saturated secondary to leaking around the drain site. Sensation intact to light touch in a sural, saphenous, deep peroneal, superficial peroneal, medial and lateral plantar nerve distribution. Motor is intact, patient able to dorsiflex and plantarflex ankle and extend and flex great toe. Dorsalis Pedis pulse +2, Brisk capillary refill. Compartments are soft. Calves non-tender to palpation bilaterally. Results Result Diagram: 07/09/18 1804 07/09/18 0512 NISH CORBETT MD July 09, 2018 18:34
[2018-07-09] MEDS: GABAPENTIN 300 MG CAP PO SCH (21:00)
[2018-07-09] MEDS: LATANOPROST 0.005% 2.5 ML OPH BOTH EYES SCH (21:03)
[2018-07-09] MEDS: ARIPIPRAZOLE 5 MG TAB PO SCH (21:03)
[2018-07-09] MEDS: SENNA TAB PO SCH (21:04)
[2018-07-09] MEDS: traZODone 100 MG TAB PO SCH (21:04)
[2018-07-09] MEDS: TOPIRAMATE 25 MG TAB PO SCH (21:04)
[2018-07-09 21:20] VITALS: BP 127/74; PULSE 102; RESP 18
[2018-07-10 01:34] VITALS: BP 122/79; PULSE 99; RESP 18
[2018-07-10] MEDS: PANTOPRAZOLE (EC) 40 MG TAB PO SCH (06:00)
[2018-07-10 08:13] VITALS: BP 104/56; PULSE 87; RESP 17
[2018-07-10] MEDS: oxyCODONE (CR) 20 MG TAB [oxyCONTIN] PO SCH ×2 (08:43→21:51)
[2018-07-10] MEDS: DOCUSATE SODIUM 100 MG CAP PO SCH ×2 (08:43→21:51)
[2018-07-10] MEDS: METOPROLOL (XL) 50 MG TAB PO SCH ×2 (08:44→21:52)
[2018-07-10] MEDS: DULOXETINE 30 MG CAP DR PO SCH (08:45)
[2018-07-10] MEDS: FAMOTIDINE 20 MG TAB PO SCH ×2 (08:46→21:51)
[2018-07-10] MEDS: CHOLECALCIFEROL 2,000 UNIT CAP PO SCH (08:46)
[2018-07-10] MEDS: BUPROPION (XL) 150 MG TAB PO SCH (08:46)
[2018-07-10] MEDS: POTASSIUM CHLORIDE 20 MEQ POWDER FOR ORAL SOLN PO SCH (08:47)
[2018-07-10] MEDS: ESCITALOPRAM 10 MG TAB PO SCH (08:47)
[2018-07-10] MEDS: oxyCODONE 5 MG TAB PO PRN (08:48)
[2018-07-10] MEDS: ENOXAPARIN 40 MG/0.4 ML SYG SC SCH (08:49)
[2018-07-10] MEDS ORDERED: ENOXAPARIN 40 MG/0.4 ML SYG SC SCH (09:00)
--- NOTE | 2018-07-10 10:58 | PN ---
Date/Time of Note Date/Time of Note DATE: 07/10/18 TIME: 10:49 Assessment/Plan VTE Prophylaxis Risk score (from Nsg)>0 risk: 10 SCD applied (from Nsg): Yes Pharmacological prophylaxis: LMWH Lines/Catheters IV Catheter Type (from Nrsg): Saline Lock Urinary Cath still in place: Yes Reason Cath still needed: other (indicate) (dc) Assessment/Plan Hospital Course SUBJECTIVE: POD #3. Continues to lose from right hip surgical site. Patient is also feeling dizzy and weaker. OBJECTIVE: Vital signs-see below PHYSICAL EXAM: Constitutional: Adequately built,not in acute distress. HEENT: Head atraumatic and normocephalic. Eyes: Extraocular muscles intact. Anicteric sclerae. Pupils equal bilaterally, reactive to light. NECK: Supple without lymph node. CHEST: Clear and good breath sounds equally. No wheezing. No rhonchi. HEART: S1, S2. Regular rate and rhythm. ABDOMEN: Soft/non tender with no rebound tenderness. Bowel sounds were present. EXTREMITIES: R hip dressing soaked w/bloody drainage. Hemovac draining moderate blood. A small hematoma is appreciated. no cyanosis, clubbing or edema. NEUROLOGIC: Alert and oriented x3. No focal deficit. No sensory deficit. PSYCHOSOCIAL: No signs of depression. INTEGUMENTARY: No open wounds. ASSESSMENT AND PLAN: 68-yo f w/htn,fibromyalgia, lumbar spinal fusion surgery,depression, admitted with mechanical fall/ R displaced femoral neck fracture... 1. Right displaced femoral neck fracture -Status post R Hip hemiarthroplasty 07/07/2018 -Postop management per orthopedic team -dvt ppx (patient is getting Lovenox prophylaxis per Ortho, aware of site bleeding), pain control 2. Acute blood loss anemia secondary to site bleeding -pt also does have chronic anemia but now is symptomatic.. -consider transfusing 1 unit of blood (if ok w/ortho) if hemoglobin does not improve in the next 24 hours and patient continues to bleed from the site. -For now, will give 1 dose of albumin and IV iron -Repeat H&H. -consider holding antiplatelet/anticoagulation 3. Essential hypertension -Continue beta-blockers 4. Depression -on Trazodone/Lexapro/Cymbalta 5. Fibromyalgia -cont.pain mgmt 6. Debility -SNF placement when medical work up completed. DVT prophylaxis: We will start Lovenox per orthopedic recommendation for 6 weeks. PUD prophylaxis: Pepcid. Disposition: Continue with rehab. Monitor H&H closely and if drops further, from a medicine standpoint, we recommend transfusing blood if okay with orthopedic. Continue with albumin and IV iron as she is symptomatic. PT/rehab as tolerated. Final disposition per Ortho, Patient was seen in collaboration with Dr. Jonas. Result Diagram: 07/10/18 [id number] Results 24hrs Laboratory Tests Test 07/09/18 11:11 07/09/18 18:04 07/10/18 04:42 White Blood Count 6.1 # 7.2 6.6 Red Blood Count 2.62 L 2.50 L 2.48 L Hemoglobin 8.2 L 7.9 L 7.6 L Hematocrit 26.1 L 24.4 L 24.1 L Mean Corpuscular Volume 99.6 97.6 97.2 Mean Corpuscular Hemoglobin 31.3 31.6 30.6 Mean Corpuscular Hemoglobin Concent 31.4 L 32.4 31.5 L Red Cell Distribution Width 13.2 13.1 13.2 Platelet Count 112 L 114 L 111 L Mean Platelet Volume 12.2 H 11.9 H 12.0 H Immature Granulocytes % 0.300 0.300 0.600 H Neutrophils % 66.2 69.5 68.1 Lymphocytes % 24.2 21.5 22.4 Monocytes % 8.1 7.8 7.6 Eosinophils % 1.0 0.8 1.1 Basophils % 0.2 0.1 0.2 Nucleated Red Blood Cells % 0.0 0.0 0.0 Immature Granulocytes # 0.020 0.020 0.040 H Neutrophils # 4.0 5.0 4.5 Lymphocytes # 1.5 1.6 1.5 Monocytes # 0.5 0.6 0.5 Eosinophils # 0.1 0.1 0.1 Basophils # 0.0 0.0 0.0 Nucleated Red Blood Cells # 0.0 0.0 0.0 Prothrombin Time 12.4 Prothrombin Time Ratio 1.0 INR International Normalized Ratio 0.91 Sodium Level 140 Potassium Level 3.7 Chloride Level 106 Carbon Dioxide Level 32 H Anion Gap 2 L Blood Urea Nitrogen 10 Creatinine 0.80 Est Glomerular Filtrat Rate mL/min > 60 Glucose Level 106 Calcium Level 8.3 L Exam/Review of Systems Exam Vitals Vital Signs Date Temp Pulse Resp B/P (MAP) Pulse Ox O2 O2 Flow FiO2 Time Delivery Rate 07/10/18 98.3 87 17 104/56 98 Room Air 08:13 (72) 07/08/18 2.0 21:30 Intake and Output 07/09/18 07/09/18 07/10/18 1515:00 23:00 07:00 IntakeIntake Total 1330 ml 480 ml 400 ml OutputOutput Total 985 ml 600 ml 1660 ml BalanceBalance 345 ml -120 ml -1260 ml Results Results 24hrs Laboratory Tests Test 07/09/18 11:11 07/09/18 18:04 07/10/18 04:42 White Blood Count 6.1 # 7.2 6.6 Red Blood Count 2.62 L 2.50 L 2.48 L Hemoglobin 8.2 L 7.9 L 7.6 L Hematocrit 26.1 L 24.4 L 24.1 L Mean Corpuscular Volume 99.6 97.6 97.2 Mean Corpuscular Hemoglobin 31.3 31.6 30.6 Mean Corpuscular Hemoglobin Concent 31.4 L 32.4 31.5 L Red Cell Distribution Width 13.2 13.1 13.2 Platelet Count 112 L 114 L 111 L Mean Platelet Volume 12.2 H 11.9 H 12.0 H Immature Granulocytes % 0.300 0.300 0.600 H Neutrophils % 66.2 69.5 68.1 Lymphocytes % 24.2 21.5 22.4 Monocytes % 8.1 7.8 7.6 Eosinophils % 1.0 0.8 1.1 Basophils % 0.2 0.1 0.2 Nucleated Red Blood Cells % 0.0 0.0 0.0 Immature Granulocytes # 0.020 0.020 0.040 H Neutrophils # 4.0 5.0 4.5 Lymphocytes # 1.5 1.6 1.5 Monocytes # 0.5 0.6 0.5 Eosinophils # 0.1 0.1 0.1 Basophils # 0.0 0.0 0.0 Nucleated Red Blood Cells # 0.0 0.0 0.0 Prothrombin Time 12.4 Prothrombin Time Ratio 1.0 INR International Normalized Ratio 0.91 Sodium Level 140 Potassium Level 3.7 Chloride Level 106 Carbon Dioxide Level 32 H Anion Gap 2 L Blood Urea Nitrogen 10 Creatinine 0.80 Est Glomerular Filtrat Rate mL/min > 60 Glucose Level 106 Calcium Level 8.3 L Medications Medication Current Medications IV Flush (NS 3 ml) 3 ml PER PROTOCOL IV ; Start 07/07/18 at 09:30 Ondansetron HCl (Zofran Tab) 4 mg Q6H PRN PO NAUSEA/VOMITING; Start 07/07/18 at 09:30 Acetaminophen (Tylenol Tab) 650 mg Q6H PRN PO .PAIN 1-3 OR TEMP; Start 07/07/18 at 09:30 Magnesium Hydroxide (Milk Of Mag) 30 ml DAILY PRN PO .CONSTIPATION; Start 07/07/18 at 09:30 Zolpidem Tartrate (Ambien) 5 mg QHS PRN PO .INSOMNIA; Start 07/07/18 at 09:30 Famotidine (Pepcid) 20 mg Q12 PO Last administered on 07/10/18at 08:46; Admin Dose 20 MG; Start 07/07/18 at 21:00 Amlodipine Besylate (Norvasc) 5 mg DAILY PO ; Start 07/08/18 at 09:00; Status Hold Clonidine (Catapres) 0.1 mg DAILY PRN PO ELEVATED BLOOD PRESSURE; Start 07/07/18 at 09:30; Status Hold Docusate Sodium (Colace) 250 mg DAILY PRN PO CONSTIPATION; Start 07/07/18 at 09:30 Escitalopram Oxalate (Lexapro) 20 mg DAILY PO Last administered on 07/10/18 08:47; Admin Dose 20 MG; Start 07/08/18 at 09:00 Hydroxyzine HCl (Atarax) 50 mg BID PO Last administered on 07/09/18at 21:04; Admin Dose 50 MG; Start 07/07/18 at 21:00 Lidocaine (Lidoderm) 1 patch HS PRN TD ANESTHESIA; Start 07/07/18 at 09:30 Potassium Chloride (Potassium Chloride Pwd/Soln) 20 meq DAILY PO Last administered on 07/10/18at 08:47; Admin Dose 20 MEQ; Start 07/08/18 at 09:00 Senna (Senokot) 1 tab HS PO Last administered on 07/09/18at 21:04; Admin Dose 1 TAB; Start 07/07/18 at 21:00 Trazodone HCl (Desyrel) 300 mg HS PO Last administered on 07/09/18 21:04; Admin Dose 300 MG; Start 07/07/18 at 21:00 Bupropion HCl (Wellbutrin Xl) 300 mg DAILY PO Last administered on 07/10/18 08:46; Admin Dose 300 MG; Start 07/08/18 at 09:00 Topiramate (Topamax) 25 mg QHS PO Last administered on 07/09/18 21:04; Admin Dose 25 MG; Start 07/07/18 at 21:00 Latanoprost (Xalatan) 1 drop HS BOTH EYES Last administered on 07/09/18 21:03; Admin Dose 1 DROP; Start 07/07/18 at 21:00 Aripiprazole (Abilify) 5 mg QHS PO Last administered on 07/09/18 21:03; Admin Dose 5 MG; Start 07/07/18 at 21:00 Duloxetine HCl (Cymbalta) 60 mg QAM PO Last administered on 07/10/18 08:45; Admin Dose 60 MG; Start 07/08/18 at 09:00 Cholecalciferol (Vitamin D) 2,000 unit QAM PO Last administered on 07/10/18 08:46; Admin Dose 2,000 UNIT; Start 07/08/18 at 09:00 Lactated Ringer's 1,000 ml @ 80 mls/hr [id number] IV Last administered on 07/08/18 17:16; Admin Dose 80 MLS/HR; Start 07/07/18 at 18:30 Oxycodone HCl (Roxicodone) 10 mg Q4H PRN PO .PAIN Last administered on 07/10/18 08:48; Admin Dose 10 MG; Start 07/07/18 at 18:30 Oxycodone HCl (Roxicodone) 5 mg Q4H PRN PO .PAIN; Start 07/07/18 at 18:30 Acetaminophen (Tylenol Tab) 1,000 mg Q8 PO Last administered on 07/07/18 22:22; Admin Dose 1,000 MG; Start 07/07/18 at 22:00 Ondansetron HCl (Zofran Inj) 4 mg Q4H PRN IV NAUSEA/VOMITING; Start 07/07/18 at 18:30 Gabapentin (Neurontin) 300 mg QHS PO ; Start 07/07/18 at 21:00 Pantoprazole (Protonix Tab) 40 mg DAILY@06 PO Last administered on 07/09/18at 06:57; Admin Dose 40 MG; Start 07/08/18 at 06:00 Docusate Sodium (Colace) 200 mg BID PO Last administered on 07/10/18 08:43; Adm in Dose 200 MG; Start 07/08/18 at 09:00; Stop 07/10/18 at 21:01 Simethicone (Mylicon) 80 mg TID PRN PO .GAS; Start 07/07/18 at 18:30 Senna/Docusate Sodium (Senokot-S) 2 tab BID PRN PO .CONSTIPATION; Start 07/07/18 at 18:30 Magnesium Hydroxide (Milk Of Mag) 30 ml HS PRN PO .CONSTIPATION; Start 07/07/18 at 18:30 Bisacodyl (Dulcolax Supp) 10 mg DAILY PRN [place] .CONSTIPATION; Start 07/07/18 at 18:30 Sodium Biphosphate/ Sodium Phosphate (Fleet Enema) 133 ml DAILY PRN [place] .CONSTIPATION; Start 07/07/18 at 18:30 Diphenhydramine HCl (Benadryl) 25 mg Q4H PRN IV .ITCHING; Start 07/07/18 at 18:30 Naloxone HCl (Narcan) 0.2 mg Q2M PRN IV .RESP RATE; Start 07/07/18 at 18:30 Oxycodone HCl (Roxicodone) 15 mg Q4H PRN PO MODERATE PAIN LEVEL 4-6 Last administered on 07/09/18at 14:36; Admin Dose 15 MG; Start 07/07/18 at 18:30 Meperidine HCl (Demerol) 25 mg Q4H PRN IM BREAKTHROUGH PAIN; Start 07/07/18 at 18:30 Oxycodone HCl (Oxycontin) 40 mg Q12 PO Last administered on 07/10/18at 08:43; Admin Dose 40 MG; Start 07/07/18 at 22:12 Enoxaparin Sodium (Lovenox) 40 mg DAILY SC Last administered on 07/10/18at 08:49; Admin Dose 40 MG; Start 07/08/18 at 11:30 Metoprolol Succinate (Toprol Xl) 50 mg Q12H PO Last administered on 07/10/18at 08:44; Admin Dose 50 MG; Start 07/09/18 at 09:00 Ferric Sodium Gluconate Complex 125 mg/Sodium Chloride 100 ml @ 100 mls/hr DAILY@1300 IVPB ; Start 07/10/18 at 13:00; Stop 07/12/18 at 13:59; Status UNV KOBI RICE NP July 10, 2018 10:57
--- NOTE | 2018-07-10 11:23 | PDOCDIS ---
Discharge Instructions CONDITION [id number] Patient Condition: [id number] Stable HOME CARE INSTRUCTIONS: [id number] Diet Instructions: [id number] Regular FOLLOW UP/APPOINTMENTS Follow-up Plan DC TO [facility] PT/REHAB ORTHO F/U IN 2WEEK KOBI RICE NP July 10, 2018 11:23
[2018-07-10] MEDS ORDERED: SOD FERRIC GLUC COMPLX 125 MG in SOD CHLORIDE 0.9% 100 ML IVPB ONE (11:30)
[2018-07-10] MEDS ORDERED: HYDROCODONE/APAP (5/325) TAB PO PRN (11:30)
[2018-07-10] MEDS ORDERED: ALBUMIN HUMAN 25% 100 ML IV ONE (12:00)
[2018-07-10] MEDS: hydrOXYzine HCL 25 MG TAB PO SCH ×2 (12:11→21:50)
[2018-07-10] MEDS: SOD FERRIC GLUC COMPLX 125 MG in SOD CHLORIDE 0.9% 100 ML IVPB SCH (13:33)
[2018-07-10] MEDS: ACETAMINOPHEN 500 MG TAB PO SCH ×3 (14:00→22:00)
[2018-07-10 14:49] VITALS: BP 109/61; PULSE 92; RESP 16
[2018-07-10] MEDS: oxyCODONE 15 MG TAB PO PRN ×2 (15:16→23:44)
--- NOTE | 2018-07-10 15:31 | PN ---
Date/Time of Note Date/Time of Note DATE: 07/10/18 TIME: 15:28 Assessment/Plan Lines/Catheters IV Catheter Type (from Nrsg): Saline Lock Bernal in Place (from Nrsg): Yes Assessment/Plan Chief Complaint/Hosp Course 68-year-old female POD#3 s/p right hip hemiarthroplasty. The patient had some difficulty today progressing. At this time we will continue to monitor vitals and hemoglobin carefully. We will try to mobilize with physical therapy later today. We will likely DC Hemovac tomorrow 07/11/2018 -Post op H&H stable -PT/OT. Posterior Hip Precautions -Joints pain control protocol -DVT prophylaxis: SCD's, Lovenox 40 mg daily x6 weeks -Weight bearing status: as tolerated -Diet: ADAT -Bernal: DC'd tomorrow morning -Discharge planning consult Patient is to follow-up in my clinic in 2 weeks. Subjective 24 Hr Interval Summary Patient doing well No acute events overnight. Patient was lightheaded earlier this morning. However it has not resolved Pain is well controlled Exam/Review of Systems Vital Signs Vitals Vital Signs Date Temp Pulse Resp B/P (MAP) Pulse Ox O2 O2 Flow FiO2 Time Delivery Rate 07/10/18 98.1 92 16 109/61 95 Room Air 14:49 (77) 07/08/18 2.0 21:30 Intake and Output 07/09/18 07/09/18 07/10/18 1515:00 23:00 07:00 IntakeIntake Total 1330 ml 480 ml 400 ml OutputOutput Total 985 ml 600 ml 1660 ml BalanceBalance 345 ml -120 ml -1260 ml Exam Free Text/Dictation Right lower extremity: Surgical dressing: clean, dry, and intact, no erythema Drain site dressing is saturated. Sensation intact to light touch in a sural, saphenous, deep peroneal, superficial peroneal, medial and lateral plantar nerve distribution. Motor is intact, patient able to dorsiflex and plantarflex ankle and extend and flex great toe. Dorsalis Pedis pulse +2, Brisk capillary refill. Compartments are soft. Calves non-tender to palpation bilaterally. Results Result Diagram: 07/10/18 1500 07/10/18 0442 NISH CORBETT MD July 10, 2018 15:31
[2018-07-10 20:56] VITALS: BP 119/61; PULSE 96; RESP 20
[2018-07-10] MEDS ORDERED: FERROUS FUMARATE (SR) TAB PO SCH (21:00)
[2018-07-10] MEDS: GABAPENTIN 300 MG CAP PO SCH (21:00)
[2018-07-10] MEDS: traZODone 100 MG TAB PO SCH (21:50)
[2018-07-10] MEDS: ARIPIPRAZOLE 5 MG TAB PO SCH (21:51)
[2018-07-10] MEDS: LATANOPROST 0.005% 2.5 ML OPH BOTH EYES SCH (21:51)
[2018-07-10] MEDS: TOPIRAMATE 25 MG TAB PO SCH (21:52)
[2018-07-10] MEDS: SENNA TAB PO SCH (21:52)
[2018-07-11 01:55] VITALS: BP 121/65; PULSE 94; RESP 20
[2018-07-11] MEDS: ACETAMINOPHEN 500 MG TAB PO SCH ×2 (02:47→14:00)
[2018-07-11] MEDS: PANTOPRAZOLE (EC) 40 MG TAB PO SCH (05:16)
[2018-07-11 08:07] VITALS: BP 106/55; PULSE 85; RESP 18
[2018-07-11] MEDS: hydrOXYzine HCL 25 MG TAB PO SCH (09:31)
[2018-07-11] MEDS: FAMOTIDINE 20 MG TAB PO SCH (09:31)
[2018-07-11] MEDS: ESCITALOPRAM 10 MG TAB PO SCH (09:31)
[2018-07-11] MEDS: CHOLECALCIFEROL 2,000 UNIT CAP PO SCH (09:31)
[2018-07-11] MEDS: oxyCODONE (CR) 20 MG TAB [oxyCONTIN] PO SCH (09:31)
[2018-07-11] MEDS: POTASSIUM CHLORIDE 20 MEQ POWDER FOR ORAL SOLN PO SCH (09:32)
[2018-07-11] MEDS: BUPROPION (XL) 150 MG TAB PO SCH (09:32)
[2018-07-11] MEDS: METOPROLOL (XL) 50 MG TAB PO SCH (09:32)
[2018-07-11] MEDS: DULOXETINE 30 MG CAP DR PO SCH (09:32)
[2018-07-11] MEDS: ENOXAPARIN 40 MG/0.4 ML SYG SC SCH (09:33)
[2018-07-11] MEDS: oxyCODONE 15 MG TAB PO PRN ×3 (11:42→18:58)
--- NOTE | 2018-07-11 12:44 | PDOCDIS ---
Discharge Instructions CONDITION [id number] Patient Condition: [id number] Stable HOME CARE INSTRUCTIONS: [id number] Diet Instructions: [id number] Regular FOLLOW UP/APPOINTMENTS [facility]THO F/U IN 2WEEK KOBI RICE NP July 11, 2018 12:44
[2018-07-11] MEDS ORDERED: ENOX40DI2 SC (12:50)
[2018-07-11] MEDS ORDERED: GABA300C16 PO ×2 (12:50→21:47)
[2018-07-11] MEDS ORDERED: CHOL200073 PO (12:50)
[2018-07-11] MEDS ORDERED: METO-319 PO (12:50)
--- NOTE | 2018-07-11 12:55 | DS ---
Date/Time of Note Date/Time of Note DATE: 07/11/18 TIME: 12:55 Discharge Summary Admission/Discharge Info Admit Date/Time July 07, 2018 at 07:43 Discharge Date/Time Hospital Course SUBJECTIVE: POD #3. Continues to lose from right hip surgical site. Patient is also feeling dizzy and weaker. OBJECTIVE: Vital signs-see below PHYSICAL EXAM: Constitutional: Adequately built,not in acute distress. HEENT: Head atraumatic and normocephalic. Eyes: Extraocular muscles intact. Anicteric sclerae. Pupils equal bilaterally, reactive to light. NECK: Supple without lymph node. CHEST: Clear and good breath sounds equally. No wheezing. No rhonchi. HEART: S1, S2. Regular rate and rhythm. ABDOMEN: Soft/non tender with no rebound tenderness. Bowel sounds were present. EXTREMITIES: R hip dressing soaked w/bloody drainage. Hemovac draining moderate blood. A small hematoma is appreciated. no cyanosis, clubbing or edema. NEUROLOGIC: Alert and oriented x3. No focal deficit. No sensory deficit. PSYCHOSOCIAL: No signs of depression. INTEGUMENTARY: No open wounds. ASSESSMENT AND PLAN: 68-yo f w/htn,fibromyalgia, lumbar spinal fusion surgery,depression, admitted with mechanical fall/ R displaced femoral neck fracture... 1. Right displaced femoral neck fracture -Status post R Hip hemiarthroplasty 07/07/2018 -Postop management per orthopedic team -dvt ppx (patient is getting Lovenox prophylaxis per Ortho, aware of site bleeding), pain control 2. Acute blood loss anemia secondary to site bleeding -pt also does have chronic anemia but now is symptomatic.. -consider transfusing 1 unit of blood (if ok w/ortho) if hemoglobin does not improve in the next 24 hours and patient continues to bleed from the site. -For now, will give 1 dose of albumin and IV iron -Repeat H&H. -consider holding antiplatelet/anticoagulation 3. Essential hypertension -Continue beta-blockers 4. Depression -on Trazodone/Lexapro/Cymbalta 5. Fibromyalgia -cont.pain mgmt 6. Debility -SNF placement when medical work up completed. DVT prophylaxis: We will start Lovenox per orthopedic recommendation for 6 weeks. PUD prophylaxis: Pepcid. Disposition: Continue with rehab. Monitor H&H closely and if drops further, from a medicine standpoint, we recommend transfusing blood if okay with orthopedic. Continue with albumin and IV iron as she is symptomatic. PT/rehab as tolerated. Final disposition per Ortho, Patient was seen in collaboration with Dr. Jonas. Home Meds Reported Medications Trazodone Hcl* (Trazodone Hcl*) 300 Mg Tablet, 300 MG PO HS, TAB 05/22/14 Lactose-Free Food (ENSURE LIQUID) 237 Ml Liquid, 237 ML PO DAILY 05/22/14 Clonidine Hcl* (Clonidine Hcl*) 0.1 Mg Tab, 0.1 MG PO DAILY PRN for ELEVATED BLOOD PRESSURE, TAB 05/22/14 Escitalopram Oxalate* (Lexapro*) 20 Mg Tablet, 20 MG PO DAILY, TAB 05/22/14 Metoprolol Succinate* (Toprol XL*) 100 Mg Tab.sr.24h, 100 MG PO BID, TAB 05/22/14 Acetaminophen* (Tylenol*) 325 Mg Tablet, 650 MG PO EVERY 4-6 HOURS PRN for PAIN AND OR ELEVATED TEMP, TAB 05/22/14 Omeprazole* (Prilosec*) 20 Mg Capsule.dr, 20 MG PO DAILY, CAP 05/22/14 Potassium Chloride (Klor-Con) 20 Meq/Pkt Packet, 20 MEQ PO DAILY, PACKET 05/22/14 Ibuprofen* (Ibuprofen*) 600 Mg Tablet, 600 MG PO EVERY 6-8 HOURS PRN for PAIN, TAB 05/22/14 Amlodipine Besylate* (Norvasc*) 5 Mg Tablet, 5 MG PO DAILY, TAB 05/22/14 Diphenhydramine* Inj (Benadryl* Inj) 50 Mg/Ml Vial, 50 MG IM Q6 PRN for ALLERGIC REACTION, VIAL 05/22/14 Meperidine Hcl/Pf (Demerol 75 Mg/1.5 Ml Ampul) 75 Mg/1.5 Ml Ampul, 75 MG IM Q6 PRN for PAIN 05/22/14 Lidocaine 5%* (Lidoderm 5%*) 5% - Patch Adh..patch, 1 PATCH TD HS PRN for ANESTHESIA, PATCH 05/22/14 Hydroxyzine Hcl* (Hydroxyzine Hcl*) 50 Mg Tablet, 50 MG PO BID, TAB 05/22/14 Gabapentin* (Neurontin*) 600 Mg Tablet, 600 MG PO BID, TAB 05/22/14 Oxycodone Hcl-Acetaminophen* (Percocet*) 5-325 Mg Tablet, 1 TAB PO Q6 PRN for PAIN, TAB 05/22/14 Tolterodine Tartrate* (Tolterodine Tartrate*) 2 Mg Tablet, 2 MG PO BID, TAB 05/22/14 Sennosides* (Senokot*) 8.6 Mg Tablet, 1 TAB PO HS, TAB 05/22/14 Oxycodone Hcl* (Oxycontin*) 40 Mg Tab.er.12h, 40 MG PO Q12, TAB 05/22/14 Hydrochlorothiazide* (Hydrochlorothiazide*) 25 Mg Tab, 25 MG PO DAILY, TAB 05/22/14 Docusate Sodium* (Colace*) 250 Mg Capsule, 250 MG PO DAILY PRN for CONSTIPATION, CAP 05/22/14 Bupropion Hcl* (Wellbutrin XL*) 150 Mg Tab.sr.24h, 450 MG PO DAILY, TAB.SA 05/22/14 Follow-up Plan [facility] ORTHO F/U IN 2WEEK Primary Care Provider Not On Staff Doctor Pending Labs Laboratory Tests Test 07/10/18 15:00 07/11/18 04:55 Hemoglobin 7.8 g/dl (12.0-16.0) 7.7 g/dl (12.0-16.0) Hematocrit 24.2 % (37.0-47.0) 23.5 % (37.0-47.0) White Blood Count 5.7 10^3/ul (4.8-10.8) Red Blood Count 2.42 10^6/ul (4.20-5.40) Mean Corpuscular Volume 97.1 fl (82.0-101.0) Mean Corpuscular Hemoglobin 31.8 pg (29.0-33.0) Mean Corpuscular 32.8 g/dl (32.0-37.0) Hemoglobin Concent Red Cell Distribution Width 13.2 % (11.5-14.5) Platelet Count 144 10^3/UL (140-415) Mean Platelet Volume 11.6 fl (7.4-10.4) Immature Granulocytes % 0.400 % (0.001-0.429) Neutrophils % 67.3 % (39.0-77.0) Lymphocytes % 22.2 % (15.0-51.0) Monocytes % 8.1 % (0.0-11.0) Eosinophils % 1.8 % (0.0-7.0) Basophils % 0.2 % (0.0-2.0) Nucleated Red Blood Cells % 0.0 /100WBC (0.0-0.0) Immature Granulocytes # 0.020 10^3/ul (0.0-0.031) Neutrophils # 3.9 10^3/ul (1.6-7.5) Lymphocytes # 1.3 10^3/ul (0.8-2.9) Monocytes # 0.5 10^3/ul (0.3-0.9) Eosinophils # 0.1 10^3/ul (0.0-0.5) Basophils # 0.0 10^3/ul (0.0-0.1) Nucleated Red Blood Cells # 0.0 10^3/ul (0.0-0.0) Prothrombin Time 12.8 Sec (11.9-14.9) Prothrombin Time Ratio 1.0 INR International 0.95 Normalized Ratio Sodium Level 139 mmol/L (135-144) Potassium Level 4.0 mmol/L (3.5-5.1) Chloride Level 105 mmol/L (97-110) Carbon Dioxide Level 31 mmol/L (21-31) Anion Gap 3 (5-13) Blood Urea Nitrogen 12 mg/dl (7-20) Creatinine 0.77 mg/dl (0.44-1.00) Est Glomerular Filtrat > 60 mL/min (>60) Rate mL/min Glucose Level 103 mg/dl (70-220) Calcium Level 8.5 mg/dl (8.4-10.2) KOBI RICE NP July 11, 2018 12:55
--- NOTE | 2018-07-11 13:40 | DS ---
Date/Time of Note Date/Time of Note DATE: 07/11/18 TIME: 13:37 Discharge Summary Admission/Discharge Info Admit Date/Time July 07, 2018 at 07:43 Discharge Date/Time Discharge Diagnosis 1. Right displaced femoral neck fracture -Status post R Hip hemiarthroplasty 07/07/2018 2. Acute blood loss anemia secondary to site bleeding on chronic anemia. stable 3. Essential hypertension 4. Depression 5. Fibromyalgia 6. Debility Patient Condition: Stable Consults ,ortho Procedures 07/07/2018: Right hip x-ray. IMPRESSION: Displaced subcapital fracture of the right femoral neck. Operation performed: R Hip hemiarthroplasty 07/07/2018. Hospital Course 68-yo f w/htn,fibromyalgia, lumbar spinal fusion surgery,depression, admitted with mechanical fall/ R displaced femoral neck fracture... She underwent R Hip hemiarthroplasty 07/07/2018. Patient was continued on DVT prophylaxis. She was given appropriate pain medications. Postoperative course was noted for some oozing from operative site with mild anemia. Patient did not require any blood transfusion. Surgical site remained intact without any further bleed. Patient was being closely monitored by orthopedic team. On 07/11/2018, drainage was removed by orthopedic surgeon and patient was cleared for discharge. [facility] and was accepted to the place of their choice. Patient was continued on home medication with adjustment as required for comorbidities. Approximately 60 m spent on coordinating the discharge on this patient. She was recommended to continue Lovenox for DVT prophylaxis on discharge. Patient was seen in collaboration with Dr. Jonas. Home Meds Active Scripts Gabapentin* (Gabapentin*) 300 Mg Capsule, 300 MG PO QHS, #30 CAP Prov:RICE,KOBI V. TRIAL JUDGE 07/11/18 Metoprolol Succinate* (Toprol XL*) 50 Mg Tab.er.24h, 50 MG PO Q12H, #60 TAB Prov:RICE,KOBI V. TRIAL JUDGE 07/11/18 Enoxaparin Sodium* (Enoxaparin Sodium*) 40 Mg/0.4 Ml Syringe, 40 MG SC DAILY for 40 Days Prov:RICE,KOBI V. TRIAL JUDGE 07/11/18 Reported Medications Sennosides/Docusate Sodium (Senokot-S Tablet) 1 Each Tablet, 1 EACH PO BID, TAB 07/11/18 Simethicone* (Mylicon*) 80 Mg Tab, 80 MG PO TID PRN for DISTENSION/GAS/BLOATING, TAB 07/11/18 Oxycodone Hcl* (IR) (Oxycodone Hcl*) 15 Mg Tablet, 15 MG PO Q4H PRN for PAIN 4- 08/12, TAB 07/11/18 Oxycodone Hcl* (IR) (Oxycodone Hcl*) 5 Mg Capsule, 10 MG PO Q4H PRN for PAIN, CAP 07/11/18 Ondansetron Hcl* (Zofran*) 4 Mg Tab, 4 MG PO Q6H PRN for NAUSEA AND OR VOMITING, TAB 07/11/18 Meperidine HCl/Pf (Meperidine 25 mg/ml Vial) 25 Mg/1 Ml Vial, 1 ML IJ Q4H, VIAL 07/11/18 Magnesium Hydroxide* (Milk Of Magnesia*) 400 Mg/5 Ml Oral.susp, 30 ML PO BID PRN for NEEDED, ML 07/11/18 Lidocaine (Lidocaine) 1 Each Adh..patch, 1 EACH TP QHS 07/11/18 Docusate Sodium* (Colace*) 250 Mg Capsule, 250 MG PO DAILY, #30 CAP 07/11/18 Clonidine Hcl* (Clonidine Hcl*) 0.1 Mg Tab, 0.1 MG PO DAILY, TAB 07/11/18 Bisacodyl (Dulcolax) 10 Mg Supp.rect, 10 MG RC DAILY, SUPP.RECT 07/11/18 Acetaminophen* (Acetaminophen*) 325 Mg Tablet, 650 MG PO Q6H PRN for MILD PAIN LEVEL 1-3, #30 TAB AND FEVER 07/11/18 Trazodone Hcl* (Trazodone Hcl*) 100 Mg Tablet, 300 MG PO QHS, #30 TAB 07/11/18 Topiramate* (Topiramate*) 25 Mg Tablet, 25 MG PO QHS, TAB 07/11/18 Sennosides* (Senna Lax*) 8.6 Mg Tablet, 1 TAB PO QHS, TAB 07/11/18 Potassium Chloride* (Potassium Chloride*) 20 Meq Tablet.er, 20 MEQ PO DAILY, TAB.SA 07/11/18 Pantoprazole* (Pantoprazole*) 40 Mg Tablet.dr, 40 MG PO AC BREAKFAST, TAB 07/11/18 Oxycodone Hcl* (Oxycontin*) 20 Mg Tab.er.12h, 40 MG PO Q12, TAB 07/11/18 Latanoprost (Latanoprost) 2.5 Ml Drops, 1 DROP BOTH EYES QHS, #1 BOTTLE 07/11/18 Hydroxyzine Hcl* (Hydroxyzine Hcl*) 25 Mg Tablet, 50 MG PO BID PRN for ITCHING, #30 TAB 07/11/18 Ferrous Sulfate* (Ferrous Sulfate*) 325 Mg Tabec, 325 MG PO TID, TAB 07/11/18 Famotidine* (Famotidine*) 20 Mg Tablet, 20 MG PO BID, #60 TAB 07/11/18 Escitalopram Oxalate* (Escitalopram Oxalate*) 10 Mg Tablet, 20 MG PO DAILY, #30 TAB 07/11/18 Duloxetine Hcl* (Duloxetine Hcl*) 30 Mg Capsule.dr, 60 MG PO QAM, #30 CAP 07/11/18 Cholecalciferol (Vitamin D3) (Vitamin D-3) 2,000 Unit Tablet, 2000 UNIT PO QAM, TAB 07/11/18 Bupropion Hcl* (Bupropion XL*) 150 Mg Tab.er.24h, 300 MG PO DAILY, TAB.SA 07/11/18 Aripiprazole* (Abilify*) 5 Mg Tab, 5 MG PO QHS, #30 TAB 07/11/18 Acetaminophen* (Acetaminophen*) 500 MG Extra Strength Tablet, 1000 MG PO Q8H PRN for PAIN AND OR ELEVATED TEMP, TAB 07/11/18 Amlodipine Besylate* (Norvasc*) 5 Mg Tablet, 5 MG PO DAILY, TAB 07/11/18 Discontinued Reported Medications Gabapentin* (Gabapentin*) 300 Mg Capsule, 300 MG PO QHS, #60 CAP 07/11/18 Trazodone Hcl* (Trazodone Hcl*) 300 Mg Tablet, 300 MG PO HS, TAB 05/22/14 Lactose-Free Food (ENSURE LIQUID) 237 Ml Liquid, 237 ML PO DAILY 05/22/14 Clonidine Hcl* (Clonidine Hcl*) 0.1 Mg Tab, 0.1 MG PO DAILY PRN for ELEVATED BLOOD PRESSURE, TAB 05/22/14 Escitalopram Oxalate* (Lexapro*) 20 Mg Tablet, 20 MG PO DAILY, TAB 05/22/14 Metoprolol Succinate* (Toprol XL*) 100 Mg Tab.sr.24h, 100 MG PO BID, TAB 05/22/14 Acetaminophen* (Tylenol*) 325 Mg Tablet, 650 MG PO EVERY 4-6 HOURS PRN for PAIN AND OR ELEVATED TEMP, TAB 05/22/14 Omeprazole* (Prilosec*) 20 Mg Capsule.dr, 20 MG PO DAILY, CAP 05/22/14 Potassium Chloride (Klor-Con) 20 Meq/Pkt Packet, 20 MEQ PO DAILY, PACKET 05/22/14 Ibuprofen* (Ibuprofen*) 600 Mg Tablet, 600 MG PO EVERY 6-8 HOURS PRN for PAIN, TAB 05/22/14 Amlodipine Besylate* (Norvasc*) 5 Mg Tablet, 5 MG PO DAILY, TAB 05/22/14 Diphenhydramine* Inj (Benadryl* Inj) 50 Mg/Ml Vial, 50 MG IM Q6 PRN for ALLERGIC REACTION, VIAL 05/22/14 Meperidine Hcl/Pf (Demerol 75 Mg/1.5 Ml Ampul) 75 Mg/1.5 Ml Ampul, 75 MG IM Q6 PRN for PAIN 05/22/14 Lidocaine 5%* (Lidoderm 5%*) 5% - Patch Adh..patch, 1 PATCH TD HS PRN for ANESTHESIA, PATCH 05/22/14 Hydroxyzine Hcl* (Hydroxyzine Hcl*) 50 Mg Tablet, 50 MG PO BID, TAB 05/22/14 Gabapentin* (Neurontin*) 600 Mg Tablet, 600 MG PO BID, TAB 05/22/14 Oxycodone Hcl-Acetaminophen* (Percocet*) 5-325 Mg Tablet, 1 TAB PO Q6 PRN for PAIN, TAB 05/22/14 Tolterodine Tartrate* (Tolterodine Tartrate*) 2 Mg Tablet, 2 MG PO BID, TAB 05/22/14 Sennosides* (Senokot*) 8.6 Mg Tablet, 1 TAB PO HS, TAB 05/22/14 Oxycodone Hcl* (Oxycontin*) 40 Mg Tab.er.12h, 40 MG PO Q12, TAB 05/22/14 Hydrochlorothiazide* (Hydrochlorothiazide*) 25 Mg Tab, 25 MG PO DAILY, TAB 05/22/14 Docusate Sodium* (Colace*) 250 Mg Capsule, 250 MG PO DAILY PRN for CONSTIPATION, CAP 05/22/14 Bupropion Hcl* (Wellbutrin XL*) 150 Mg Tab.sr.24h, 450 MG PO DAILY, TAB.SA 05/22/14 Discontinued Scripts Cholecalciferol (Vitamin D3) (VITAMIN D-3) 2,000 Unit Capsule, 2000 UNIT PO QAM, #30 CAP Prov:KOBI RICE V. TRIAL JUDGE 07/11/18 Follow-up Plan [facility] ORTHO F/U IN 2WEEK Primary Care Provider Not On Staff Doctor Pending Labs Laboratory Tests Test 07/10/18 15:00 07/11/18 04:55 Hemoglobin 7.8 g/dl (12.0-16.0) 7.7 g/dl (12.0-16.0) Hematocrit 24.2 % (37.0-47.0) 23.5 % (37.0-47.0) White Blood Count 5.7 10^3/ul (4.8-10.8) Red Blood Count 2.42 10^6/ul (4.20-5.40) Mean Corpuscular Volume 97.1 fl (82.0-101.0) Mean Corpuscular Hemoglobin 31.8 pg (29.0-33.0) Mean Corpuscular 32.8 g/dl (32.0-37.0) Hemoglobin Concent Red Cell Distribution Width 13.2 % (11.5-14.5) Platelet Count 144 10^3/UL (140-415) Mean Platelet Volume 11.6 fl (7.4-10.4) Immature Granulocytes % 0.400 % (0.001-0.429) Neutrophils % 67.3 % (39.0-77.0) Lymphocytes % 22.2 % (15.0-51.0) Monocytes % 8.1 % (0.0-11.0) Eosinophils % 1.8 % (0.0-7.0) Basophils % 0.2 % (0.0-2.0) Nucleated Red Blood Cells % 0.0 /100WBC (0.0-0.0) Immature Granulocytes # 0.020 10^3/ul (0.0-0.031) Neutrophils # 3.9 10^3/ul (1.6-7.5) Lymphocytes # 1.3 10^3/ul (0.8-2.9) Monocytes # 0.5 10^3/ul (0.3-0.9) Eosinophils # 0.1 10^3/ul (0.0-0.5) Basophils # 0.0 10^3/ul (0.0-0.1) Nucleated Red Blood Cells # 0.0 10^3/ul (0.0-0.0) Prothrombin Time 12.8 Sec (11.9-14.9) Prothrombin Time Ratio 1.0 INR International 0.95 Normalized Ratio Sodium Level 139 mmol/L (135-144) Potassium Level 4.0 mmol/L (3.5-5.1) Chloride Level 105 mmol/L (97-110) Carbon Dioxide Level 31 mmol/L (21-31) Anion Gap 3 (5-13) Blood Urea Nitrogen 12 mg/dl (7-20) Creatinine 0.77 mg/dl (0.44-1.00) Est Glomerular Filtrat > 60 mL/min (>60) Rate mL/min Glucose Level 103 mg/dl (70-220) Calcium Level 8.5 mg/dl (8.4-10.2) KOBI RICE NP July 11, 2018 13:40
[2018-07-11 14:49] VITALS: BP 108/54; PULSE 82; RESP 18
[2018-07-11] MEDS: SOD FERRIC GLUC COMPLX 125 MG in SOD CHLORIDE 0.9% 100 ML IVPB SCH (15:01)
--- NOTE | 2018-07-11 16:28 | PN ---
Date/Time of Note Date/Time of Note DATE: 07/11/18 TIME: 16:27 Assessment/Plan Lines/Catheters IV Catheter Type (from Nrsg): Saline Lock Bernal in Place (from Nrsg): Yes Assessment/Plan Chief Complaint/Hosp Course 68-year-old female POD#4 s/p right hip hemiarthroplasty. The patient had some difficulty today progressing. DC Hemovac today 07/11/2018 -Post op H&H stable -PT/OT. Posterior Hip Precautions -Joints pain control protocol -DVT prophylaxis: SCD's, Lovenox 40 mg daily x6 weeks -Weight bearing status: as tolerated -Diet: ADAT -Bernal: DC'd tomorrow morning -Discharge planning consult Patient is to follow-up in my clinic in 2 weeks. Subjective 24 Hr Interval Summary Patient doing well No acute events overnight Pain is well controlled Exam/Review of Systems Vital Signs Vitals Vital Signs Date Temp Pulse Resp B/P (MAP) Pulse Ox O2 O2 Flow FiO2 Time Delivery Rate 07/11/18 98.0 82 18 108/54 90 Room Air 14:49 (72) 07/08/18 2.0 21:30 Intake and Output 07/10/18 07/10/18 07/11/18 1515:00 23:00 07:00 IntakeIntake Total 110 ml 400 ml OutputOutput Total 50 ml 50 ml BalanceBalance 110 ml 350 ml -50 ml Exam Free Text/Dictation Right lower extremity: Dressing: clean, dry, and intact, no erythema Sensation intact to light touch in a sural, saphenous, deep peroneal, superficia l peroneal, medial and lateral plantar nerve distribution. Motor is intact, patient able to dorsiflex and plantarflex ankle and extend and flex great toe. Dorsalis Pedis pulse +2, Brisk capillary refill. Compartments are soft. Calves non-tender to palpation bilaterally. Results Result Diagram: 07/11/18 0455 07/11/18 0455 NISH CORBETT MD July 11, 2018 16:28
[2018-07-11] MEDS ORDERED: FERROUS SULFATE (EC) 325 MG TAB PO SCH (21:00)
[2018-07-11] MEDS ORDERED: AMLO5TAB4 PO (21:41)
[2018-07-11] MEDS ORDERED: ACET-141 PO (21:42)
[2018-07-11] MEDS ORDERED: ARIP5TAB14 PO (21:43)
[2018-07-11] MEDS ORDERED: BUPR150T6 PO (21:43)
[2018-07-11] MEDS ORDERED: CHOL200056 PO (21:44)
[2018-07-11] MEDS ORDERED: ESCI10TA48 PO (21:45)
[2018-07-11] MEDS ORDERED: DULO30CA47 PO (21:45)
[2018-07-11] MEDS ORDERED: FAMO20TA18 PO (21:46)
[2018-07-11] MEDS ORDERED: FER325 PO (21:46)
[2018-07-11] MEDS ORDERED: HYDR-843 PO (21:47)
[2018-07-11] MEDS ORDERED: LATA2.5D2 BOTH EYES (21:48)
[2018-07-11] MEDS ORDERED: OXYC20TA41 PO (21:49)
[2018-07-11] MEDS ORDERED: PANT40TA4 PO (21:49)
[2018-07-11] MEDS ORDERED: SENN-120 PO (21:50)
[2018-07-11] MEDS ORDERED: POTA20TA96 PO (21:50)
[2018-07-11] MEDS ORDERED: TOPI25TA10 PO (21:51)
[2018-07-11] MEDS ORDERED: TRA100 PO (21:51)
[2018-07-11] MEDS ORDERED: ACET325T45 PO (21:52)
[2018-07-11] MEDS ORDERED: BISA10SU55 RC (21:54)
[2018-07-11] MEDS ORDERED: CLON-379 PO (21:54)
[2018-07-11] MEDS ORDERED: DOCU250C58 PO (21:55)
[2018-07-11] MEDS ORDERED: LIDO700A45 TP (21:56)
[2018-07-11] MEDS ORDERED: MAGN400O19 PO (21:57)
[2018-07-11] MEDS ORDERED: [UNRECOGNIZED DRUG - CODE] IJ (22:01)
[2018-07-11] MEDS ORDERED: ONDA4TAB13 PO (22:02)
[2018-07-11] MEDS ORDERED: OXYC5CAP17 PO (22:04)
[2018-07-11] MEDS ORDERED: OXYC15TA PO (22:04)
[2018-07-11] MEDS ORDERED: SIME80TA60 PO (22:05)
[2018-07-11] MEDS ORDERED: SENN-37 PO (22:06)
== END 2018-07-11 19:18 | DRG 470 ==
LOC: E/R 05:49 → MS1 07:43
PROVIDERS: ADMIT Internal Medicine; ATTEND Internal Medicine
PROC: 0SRR039 Replacement of Right Hip Joint, Femoral Surface with Ceramic Synthetic Substitute, Cemented, Open Approach (ICD-10-PCS; principal; 2018-07-07 14:30)
DX: S72.001A Fracture of unspecified part of neck of right femur, initial encounter for closed fracture (principal); E87.3 Alkalosis; D62 Acute posthemorrhagic anemia; E87.6 Hypokalemia; E78.5 Hyperlipidemia, unspecified; I10 Essential (primary) hypertension; F32.9 Major depressive disorder, single episode, unspecified; M79.7 Fibromyalgia; R53.81 Other malaise; G89.4 Chronic pain syndrome; Z98.1 Arthrodesis status; R29.6 Repeated falls; W01.0XXA Fall on same level from slipping, tripping and stumbling without subsequent striking against object, initial encounter; Y92.091 Bathroom in other non-institutional residence as the place of occurrence of the external cause
CPT/HCPCS: 71045; 72170; 73510; 73530; 73550; 80048; 80053; 80061; 81003; 83540; 83735; 84100; 84443; 85014; 85018; 85025; 85610; 86803; 86850; 86900; 86901; 87086; 87340; 88304; 88311; 93005; 97110; 97116; 97162; 97165; 97530; 97535; C1713; C1776; J0171; J0690; J0735; J1100; J1200; J1650; J1885; J2175; J2250; J2274; J2370; J2405; J2710; J2765; J2795; J2916; J3010; J3370; J3420; J3480; J7040; J7120; P9047

== ENCOUNTER 2018-07-11 21:02 | Emergency (ER) | payer MEDICARE, MEDICAID ==
[~2018-07-11] VITALS: Wt 68.7 kg
[~2018-07-11 21:02] MED LIST changes: +CHOL200073 PO; +ENOX40DI2 SC; +GABA300C16 PO; +METO-319 PO
[2018-07-11] MEDS ORDERED: IOHEXOL 300MG/ML 150 ML BTL ONE (21:31)
[2018-07-11] MEDS ORDERED: SOD CHLORIDE 0.9% 100 ML ONE (21:31)
[2018-07-11] MEDS ORDERED: AMLO5TAB4 PO (21:41)
[2018-07-11] MEDS ORDERED: ACET-141 PO (21:42)
[2018-07-11] MEDS ORDERED: BUPR150T6 PO (21:43)
[2018-07-11] MEDS ORDERED: ARIP5TAB14 PO (21:43)
[2018-07-11] MEDS ORDERED: CHOL200056 PO (21:44)
[2018-07-11] MEDS ORDERED: DULO30CA47 PO (21:45)
[2018-07-11] MEDS ORDERED: ESCI10TA48 PO (21:45)
[2018-07-11] MEDS ORDERED: FAMO20TA18 PO (21:46)
[2018-07-11] MEDS ORDERED: FER325 PO (21:46)
[2018-07-11] MEDS ORDERED: GABA300C16 PO (21:47)
[2018-07-11] MEDS ORDERED: HYDR-843 PO (21:47)
[2018-07-11] MEDS ORDERED: LATA2.5D2 BOTH EYES (21:48)
[2018-07-11] MEDS ORDERED: OXYC20TA41 PO (21:49)
[2018-07-11] MEDS ORDERED: PANT40TA4 PO (21:49)
[2018-07-11] MEDS ORDERED: POTA20TA96 PO (21:50)
[2018-07-11] MEDS ORDERED: SENN-120 PO (21:50)
[2018-07-11] MEDS ORDERED: TOPI25TA10 PO (21:51)
[2018-07-11] MEDS ORDERED: TRA100 PO (21:51)
[2018-07-11] MEDS ORDERED: ACET325T45 PO (21:52)
[2018-07-11] MEDS ORDERED: BISA10SU55 RC (21:54)
[2018-07-11] MEDS ORDERED: CLON-379 PO (21:54)
[2018-07-11] MEDS ORDERED: DOCU250C58 PO (21:55)
[2018-07-11] MEDS ORDERED: LIDO700A45 TP (21:56)
[2018-07-11] MEDS ORDERED: MAGN400O19 PO (21:57)
[2018-07-11] MEDS ORDERED: FENTAnyl 50 MCG/ML VIAL IV SCH (22:00)
[2018-07-11] MEDS ORDERED: [UNRECOGNIZED DRUG - CODE] IJ (22:01)
[2018-07-11] MEDS ORDERED: ONDA4TAB13 PO (22:02)
[2018-07-11] MEDS ORDERED: OXYC15TA PO (22:04)
[2018-07-11] MEDS ORDERED: OXYC5CAP17 PO (22:04)
[2018-07-11] MEDS ORDERED: SIME80TA60 PO (22:05)
[2018-07-11] MEDS ORDERED: SENN-37 PO (22:06)
[2018-07-12 00:01] VITALS: BP 132/80; PULSE 97; RESP 19
--- NOTE | 2018-07-12 00:30 | ERD ---
ER Documentation Chief Complaint Chief Complaint cash pa from [facility] for low hemoglobin, recent dc from hosp HPI This is a 68-year-old female who presents referred from [facility], for hemoglobin below 8, postoperative course was noted for some oozing from operative site with mild anemia. Patient did not require any blood transfusion. She was actually just discharged today, the patient has no new symptoms, she has pain to her surgical site, but this has been stable. She has not had any numbness or tingling. ROS All systems reviewed and are negative except as per history of present illness. Medications Home Meds Active Scripts Gabapentin* (Gabapentin*) 300 Mg Capsule, 300 MG PO QHS, #30 CAP Prov:RICEEDISONA V. WIRING MECHANIC 07/11/18 Metoprolol Succinate* (Toprol XL*) 50 Mg Tab.er.24h, 50 MG PO Q12H, #60 TAB Prov:KOBI RICE V. WIRING MECH[employer]IC 07/11/18 Enoxaparin Sodium* (Enoxaparin Sodium*) 40 Mg/0.4 Ml Syringe, 40 MG SC DAILY for 40 Days Prov:KOBI RICE V. [employer]ING MECH[employer]IC 07/11/18 Reported Medications Sennosides/Docusate Sodium (Senokot-S Tablet) 1 Each Tablet, 1 EACH PO BID, TAB 07/11/18 Simethicone* (Mylicon*) 80 Mg Tab, 80 MG PO TID PRN for DISTENSION/GAS/BLOATING, TAB 07/11/18 Oxycodone Hcl* (IR) (Oxycodone Hcl*) 15 Mg Tablet, 15 MG PO Q4H PRN for PAIN 4- 08/12, TAB 07/11/18 Oxycodone Hcl* (IR) (Oxycodone Hcl*) 5 Mg Capsule, 10 MG PO Q4H PRN for PAIN, CAP 07/11/18 Ondansetron Hcl* (Zofran*) 4 Mg Tab, 4 MG PO Q6H PRN for NAUSEA AND OR VOMITING, TAB 07/11/18 Meperidine HCl/Pf (Meperidine 25 mg/ml Vial) 25 Mg/1 Ml Vial, 1 ML IJ Q4H, VIAL 07/11/18 Magnesium Hydroxide* (Milk Of Magnesia*) 400 Mg/5 Ml Oral.susp, 30 ML PO BID PRN for NEEDED, ML 07/11/18 Lidocaine (Lidocaine) 1 Each Adh..patch, 1 EACH TP QHS 07/11/18 Docusate Sodium* (Colace*) 250 Mg Capsule, 250 MG PO DAILY, #30 CAP 07/11/18 Clonidine Hcl* (Clonidine Hcl*) 0.1 Mg Tab, 0.1 MG PO DAILY, TAB 07/11/18 Bisacodyl (Dulcolax) 10 Mg Supp.rect, 10 MG RC DAILY, SUPP.RECT 07/11/18 Acetaminophen* (Acetaminophen*) 325 Mg Tablet, 650 MG PO Q6H PRN for MILD PAIN LEVEL 1-3, #30 TAB AND FEVER 07/11/18 Trazodone Hcl* (Trazodone Hcl*) 100 Mg Tablet, 300 MG PO QHS, #30 TAB 07/11/18 Topiramate* (Topiramate*) 25 Mg Tablet, 25 MG PO QHS, TAB 07/11/18 Sennosides* (Senna Lax*) 8.6 Mg Tablet, 1 TAB PO QHS, TAB 07/11/18 Potassium Chloride* (Potassium Chloride*) 20 Meq Tablet.er, 20 MEQ PO DAILY, TAB.SA 07/11/18 Pantoprazole* (Pantoprazole*) 40 Mg Tablet.dr, 40 MG PO AC BREAKFAST, TAB 07/11/18 Oxycodone Hcl* (Oxycontin*) 20 Mg Tab.er.12h, 40 MG PO Q12, TAB 07/11/18 Latanoprost (Latanoprost) 2.5 Ml Drops, 1 DROP BOTH EYES QHS, #1 BOTTLE 07/11/18 Hydroxyzine Hcl* (Hydroxyzine Hcl*) 25 Mg Tablet, 50 MG PO BID PRN for ITCHING, #30 TAB 07/11/18 Ferrous Sulfate* (Ferrous Sulfate*) 325 Mg Tabec, 325 MG PO TID, TAB 07/11/18 Famotidine* (Famotidine*) 20 Mg Tablet, 20 MG PO BID, #60 TAB 07/11/18 Escitalopram Oxalate* (Escitalopram Oxalate*) 10 Mg Tablet, 20 MG PO DAILY, #30 TAB 07/11/18 Duloxetine Hcl* (Duloxetine Hcl*) 30 Mg Capsule.dr, 60 MG PO QAM, #30 CAP 07/11/18 Cholecalciferol (Vitamin D3) (Vitamin D-3) 2,000 Unit Tablet, 2000 UNIT PO QAM, TAB 07/11/18 Bupropion Hcl* (Bupropion XL*) 150 Mg Tab.er.24h, 300 MG PO DAILY, TAB.SA 07/11/18 Aripiprazole* (Abilify*) 5 Mg Tab, 5 MG PO QHS, #30 TAB 07/11/18 Acetaminophen* (Acetaminophen*) 500 MG Extra Strength Tablet, 1000 MG PO Q8H PRN for PAIN AND OR ELEVATED TEMP, TAB 07/11/18 Amlodipine Besylate* (Norvasc*) 5 Mg Tablet, 5 MG PO DAILY, TAB 07/11/18 Discontinued Reported Medications Gabapentin* (Gabapentin*) 300 Mg Capsule, 300 MG PO QHS, #60 CAP 07/11/18 Trazodone Hcl* (Trazodone Hcl*) 300 Mg Tablet, 300 MG PO HS, TAB 05/22/14 Lactose-Free Food (ENSURE LIQUID) 237 Ml Liquid, 237 ML PO DAILY 05/22/14 Clonidine Hcl* (Clonidine Hcl*) 0.1 Mg Tab, 0.1 MG PO DAILY PRN for ELEVATED BLOOD PRESSURE, TAB 05/22/14 Escitalopram Oxalate* (Lexapro*) 20 Mg Tablet, 20 MG PO DAILY, TAB 05/22/14 Metoprolol Succinate* (Toprol XL*) 100 Mg Tab.sr.24h, 100 MG PO BID, TAB 05/22/14 Acetaminophen* (Tylenol*) 325 Mg Tablet, 650 MG PO EVERY 4-6 HOURS PRN for PAIN AND OR ELEVATED TEMP, TAB 05/22/14 Omeprazole* (Prilosec*) 20 Mg Capsule.dr, 20 MG PO DAILY, CAP 05/22/14 Potassium Chloride (Klor-Con) 20 Meq/Pkt Packet, 20 MEQ PO DAILY, PACKET 05/22/14 Ibuprofen* (Ibuprofen*) 600 Mg Tablet, 600 MG PO EVERY 6-8 HOURS PRN for PAIN, TAB 05/22/14 Amlodipine Besylate* (Norvasc*) 5 Mg Tablet, 5 MG PO DAILY, TAB 05/22/14 Diphenhydramine* Inj (Benadryl* Inj) 50 Mg/Ml Vial, 50 MG IM Q6 PRN for ALLERGIC REACTION, VIAL 05/22/14 Meperidine Hcl/Pf (Demerol 75 Mg/1.5 Ml Ampul) 75 Mg/1.5 Ml Ampul, 75 MG IM Q6 PRN for PAIN 05/22/14 Lidocaine 5%* (Lidoderm 5%*) 5% - Patch Adh..patch, 1 PATCH TD HS PRN for ANESTHESIA, PATCH 05/22/14 Hydroxyzine Hcl* (Hydroxyzine Hcl*) 50 Mg Tablet, 50 MG PO BID, TAB 05/22/14 Gabapentin* (Neurontin*) 600 Mg Tablet, 600 MG PO BID, TAB 05/22/14 Oxycodone Hcl-Acetaminophen* (Percocet*) 5-325 Mg Tablet, 1 TAB PO Q6 PRN for PAIN, TAB 05/22/14 Tolterodine Tartrate* (Tolterodine Tartrate*) 2 Mg Tablet, 2 MG PO BID, TAB 05/22/14 Sennosides* (Senokot*) 8.6 Mg Tablet, 1 TAB PO HS, TAB 05/22/14 Oxycodone Hcl* (Oxycontin*) 40 Mg Tab.er.12h, 40 MG PO Q12, TAB 05/22/14 Hydrochlorothiazide* (Hydrochlorothiazide*) 25 Mg Tab, 25 MG PO DAILY, TAB 05/22/14 Docusate Sodium* (Colace*) 250 Mg Capsule, 250 MG PO DAILY PRN for CONSTIPATION, CAP 05/22/14 Bupropion Hcl* (Wellbutrin XL*) 150 Mg Tab.sr.24h, 450 MG PO DAILY, TAB.SA 05/22/14 Discontinued Scripts Cholecalciferol (Vitamin D3) (VITAMIN D-3) 2,000 Unit Capsule, 2000 UNIT PO QAM, #30 CAP Prov:KOBI RICE V. W[employer]ING MECHANIC 07/11/18 Allergies Allergies: Coded Allergies: codeine (Verified Allergy, Unknown, 07/11/18) hydrocodone (Verified Allergy, Unknown, 07/11/18) hydromorphone (Verified Allergy, Unknown, 07/11/18) methadone (Verified Allergy, Unknown, 07/11/18) morphine (Verified Allergy, Unknown, 07/11/18) PMhx/Soc History of Surgery: Yes (LT SHOULDER, SPINAL FUSION, HIP SX 2019) Anesthesia Reaction: No Hx Neurological Disorder: No Hx Respiratory Disorders: No Hx Cardiac Disorders: Yes (HTN, HLD) Hx Psychiatric Problems: Yes (DEPRESSION) Hx Miscellaneous Medical Probl: Yes (HTN,chronic pain,several back surgeries) Hx Alcohol Use: No Hx Substance Use: No Hx Tobacco Use: No Smoking Status: Never smoker Physical Exam Vitals Vital Signs Date Temp Pulse Resp B/P (MAP) Pulse Ox O2 O2 Flow FiO2 Time Delivery Rate 07/12/18 98.0 97 19 132/80 99 Room Air 00:01 (97) 07/11/18 98.4 85 20 118/78 99 Room Air 22:36 (91) 07/11/18 98.7 89 19 119/79 100 21:10 (92) Physical Exam Const: [] Head: Atraumatic Eyes: Normal conjunctiva ENT: Normal external ears, nose and mouth. Neck: Resp: Normal respiratory effort Cardio: Abd: Skin: Back: Ext: Right lower extremity, is splinted, the right thigh area is exquisitely tender to the touch, sensation intact distally, no palpable hematomas, radial pulses 2+ Neur: Awake and alert Psych: Normal mood and affect Result Diagram: 07/11/18214007/11/182140 Results 24 hrs Laboratory Tests Test 07/11/18 21:41 White Blood Count 6.5 10^3/ul Red Blood Count 2.59 10^6/ul Hemoglobin 8.1 g/dl Hematocrit 25.3 % Mean Corpuscular Volume 97.7 fl Mean Corpuscular Hemoglobin 31.3 pg Mean Corpuscular Hemoglobin Concent 32.0 g/dl Red Cell Distribution Width 13.2 % Platelet Count 186 10^3/UL Mean Platelet Volume 11.7 fl Immature Granulocytes % 0.500 % Neutrophils % 69.3 % Lymphocytes % 19.7 % Monocytes % 8.8 % Eosinophils % 1.5 % Basophils % 0.2 % Nucleated Red Blood Cells % 0.3 /100WBC Immature Granulocytes # 0.030 10^3/ul Neutrophils # 4.5 10^3/ul Lymphocytes # 1.3 10^3/ul Monocytes # 0.6 10^3/ul Eosinophils # 0.1 10^3/ul Basophils # 0.0 10^3/ul Nucleated Red Blood Cells # 0.0 10^3/ul Sodium Level 137 mmol/L Potassium Level 4.4 mmol/L Chloride Level 104 mmol/L Carbon Dioxide Level 28 mmol/L Anion Gap 5 Blood Urea Nitrogen 13 mg/dl Creatinine 0.84 mg/dl Est Glomerular Filtrat Rate mL/min > 60 mL/min Glucose Level 124 mg/dl Calcium Level 9.0 mg/dl Total Bilirubin 0.4 mg/dl Direct Bilirubin 0.00 mg/dl Indirect Bilirubin 0.4 mg/dl Aspartate Amino Transf (AST/SGOT) 29 IU/L Alanine Aminotransferase (ALT/SGPT) 22 IU/L Alkaline Phosphatase 78 IU/L Total Protein 6.2 g/dl Albumin 3.1 g/dl Globulin 3.10 g/dl Albumin/Globulin Ratio 1.00 Current Medications Medications Dose Sig/Brenda Start Time Status Last (Trade) Ordered Route PRN Stop Time Admin Dose Reason Admin IV Flush 10 ml STK-MED 07/11/18 DC (NS 10 ml) ONCE .ROUTE 21:31 07/11/18 21:32 Sodium 100 ml @ ud STK-MED 07/11/18 DC Chloride ONCE .ROUTE 21:31 07/11/18 21:32 Iohexol 150 ml STK-MED 07/11/18 DC (Omnipaque ONCE .ROUTE 21:31 07/11/18 300mg/ ml) 21:32 Fentanyl 75 mcg ONCE IV 07/11/18 DC 07/11/18 (Sublimaze) 22:00 21:49 07/12/18 00:04 Procedures/MDM This is a 68-year-old female presents for evaluation of anemia, I reviewed her records on her admission, and her hemoglobin has been below 8, but has been stable and she has had no evidence of active bleeding, and has remained hemodynamically stable. Repeat hemoglobin today actually shows a hemoglobin 8.1, a CT to evaluate the injury shows no evidence of any bleeding or hematoma, thus she is stable to return to the facility, at discharge patient was in no acute distress. Departure Diagnosis: Primary Impression: Anemia Anemia type: unspecified type Qualified Codes: D64.9 - Anemia, unspecified Condition: Stable Patient Instructions: Anemia Additional Instructions: Call your primary care doctor TOMORROW for an appointment during the next 2-3 days.See the doctor sooner or return here if your condition worsens before your appointment time. LUIS DANIEL DUMONT MD July 12, 2018 00:30
== END 2018-07-12 00:03 | disposition home or self-care (01) ==
LOC: E/R 21:02
DX: D64.9 Anemia, unspecified (principal); I10 Essential (primary) hypertension
CPT/HCPCS: 74177; 80053; 85025; 96374; 99285; J3010; Q9967

== ENCOUNTER → 2018-07-31 | Outpatient (CLI) | payer MEDICARE, MEDICAID ==
[~2018-07-31] MED LIST changes: +ACET-141 PO; -ACET325T33 PO; +ACET325T45 PO; +ARIP5TAB14 PO; +BISA10SU55 RC; -BUPR-75 PO; +BUPR150T6 PO; +CHOL200056 PO; -CHOL200073 PO; -DIPH50VI2 IM; +DULO30CA47 PO; +ESCI10TA48 PO; -ESCI20TA PO; +FAMO20TA18 PO; +FER325 PO; -GABA600T PO; +HYDR-843 PO; -HYDR25TA6 PO; -HYDR50TA15 PO; -IBUP-1542 PO; -LACT-9 PO; +LATA2.5D2 BOTH EYES; +LIDO700A45 TP; -LIDO700A6 TD; +MAGN400O19 PO; -METO-336 PO; -OMEP20CA9 PO; +ONDA4TAB13 PO; -OXYC-281 PO; +OXYC15TA PO; +OXYC20TA41 PO; -OXYC40TA26 PO; +OXYC5CAP17 PO; +PANT40TA4 PO; -POTA20PA PO; +POTA20TA96 PO; +SENN-120 PO; -SENN-36 PO; +SENN-37 PO; +SIME80TA60 PO; -TOLT2TAB5 PO; +TOPI25TA10 PO; +TRA100 PO; -TRAZ300T15 PO; +[UNRECOGNIZED DRUG - CODE] IJ; -[UNRECOGNIZED DRUG - CODE] IM
--- NOTE | 2018-08-01 20:17 | CONS ---
Consult Date/Type/Reason Admit Date/Time Initial Consult Date Date/Time of Note DATE: 08/01/18 TIME: 20:14 Subjective DOS: 07/07/2018 Procedure: Right cemented hip hemiarthroplasty 3 weeks s/p right cemented hip hemiarthroplasty who returns today for follow up. The patient is doing well overall. Pain is minimal. 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 Objective Vitals Weight: 151 pound Height: 5 foot 3 inches Temperature: 90.4 Heart Rate: 91 Blood Pressure: 124/75 Respiratory Rate: 12 Exam General: Alert, oriented x3. No Acute Distress. Heart: Regular rate and rhythm. Lungs: No respiratory distress. No accessory muscle use. MUSCULOSKELETAL: Right lower Extremity: Incision clean, dry, intact. No skin breakdown, no surrounding erythema. Sensation intact to light touch in a sural, saphenous, deep peroneal, superficial peroneal, medial and lateral plantar nerve distribution. Motor is intact, patient able to dorsiflex and plantarflex ankle and extend and flex great toe. Dorsalis Pedis pulse +2, Brisk capillary refill. Compartments are soft. Rises from seated position without difficulty. Gait: Moderate pace. Limp. No Trendelenburg. Walker gait aids. Results/Medications Home Meds Active Scripts Gabapentin* (Gabapentin*) 300 Mg Capsule, 300 MG PO QHS, #30 CAP Prov:KOBI RICE V. ECONOMIC ADVISER 07/11/18 Metoprolol Succinate* (Toprol XL*) 50 Mg Tab.er.24h, 50 MG PO Q12H, #60 TAB Prov:KOBI RICE V. ECONOMIC ADVISER 07/11/18 Enoxaparin Sodium* (Enoxaparin Sodium*) 40 Mg/0.4 Ml Syringe, 40 MG SC DAILY for 40 Days Prov:KOBI RICE V. ECONOMIC ADVISER 07/11/18 Reported Medications Sennosides/Docusate Sodium (Senokot-S Tablet) 1 Each Tablet, 1 EACH PO BID, TAB 07/11/18 Simethicone* (Mylicon*) 80 Mg Tab, 80 MG PO TID PRN for DISTENSION/GAS/BLOATING, TAB 07/11/18 Oxycodone Hcl* (IR) (Oxycodone Hcl*) 15 Mg Tablet, 15 MG PO Q4H PRN for PAIN 4- 08/12, TAB 07/11/18 Oxycodone Hcl* (IR) (Oxycodone Hcl*) 5 Mg Capsule, 10 MG PO Q4H PRN for PAIN, CAP 07/11/18 Ondansetron Hcl* (Zofran*) 4 Mg Tab, 4 MG PO Q6H PRN for NAUSEA AND OR VOMITING, TAB 07/11/18 Meperidine HCl/Pf (Meperidine 25 mg/ml Vial) 25 Mg/1 Ml Vial, 1 ML IJ Q4H, VIAL 07/11/18 Magnesium Hydroxide* (Milk Of Magnesia*) 400 Mg/5 Ml Oral.susp, 30 ML PO BID PRN for NEEDED, ML 07/11/18 Lidocaine (Lidocaine) 1 Each Adh..patch, 1 EACH TP QHS 07/11/18 Docusate Sodium* (Colace*) 250 Mg Capsule, 250 MG PO DAILY, #30 CAP 07/11/18 Clonidine Hcl* (Clonidine Hcl*) 0.1 Mg Tab, 0.1 MG PO DAILY, TAB 07/11/18 Bisacodyl (Dulcolax) 10 Mg Supp.rect, 10 MG RC DAILY, SUPP.RECT 07/11/18 Acetaminophen* (Acetaminophen*) 325 Mg Tablet, 650 MG PO Q6H PRN for MILD PAIN LEVEL 1-3, #30 TAB AND FEVER 07/11/18 Trazodone Hcl* (Trazodone Hcl*) 100 Mg Tablet, 300 MG PO QHS, #30 TAB 07/11/18 Topiramate* (Topiramate*) 25 Mg Tablet, 25 MG PO QHS, TAB 07/11/18 Sennosides* (Senna Lax*) 8.6 Mg Tablet, 1 TAB PO QHS, TAB 07/11/18 Potassium Chloride* (Potassium Chloride*) 20 Meq Tablet.er, 20 MEQ PO DAILY, TAB.SA 07/11/18 Pantoprazole* (Pantoprazole*) 40 Mg Tablet.dr, 40 MG PO AC BREAKFAST, TAB 07/11/18 Oxycodone Hcl* (Oxycontin*) 20 Mg Tab.er.12h, 40 MG PO Q12, TAB 07/11/18 Latanoprost (Latanoprost) 2.5 Ml Drops, 1 DROP BOTH EYES QHS, #1 BOTTLE 07/11/18 Hydroxyzine Hcl* (Hydroxyzine Hcl*) 25 Mg Tablet, 50 MG PO BID PRN for ITCHING, #30 TAB 07/11/18 Ferrous Sulfate* (Ferrous Sulfate*) 325 Mg Tabec, 325 MG PO TID, TAB 07/11/18 Famotidine* (Famotidine*) 20 Mg Tablet, 20 MG PO BID, #60 TAB 07/11/18 Escitalopram Oxalate* (Escitalopram Oxalate*) 10 Mg Tablet, 20 MG PO DAILY, #30 TAB 07/11/18 Duloxetine Hcl* (Duloxetine Hcl*) 30 Mg Capsule.dr, 60 MG PO QAM, #30 CAP 07/11/18 Cholecalciferol (Vitamin D3) (Vitamin D-3) 2,000 Unit Tablet, 2000 UNIT PO QAM, TAB 07/11/18 Bupropion Hcl* (Bupropion XL*) 150 Mg Tab.er.24h, 300 MG PO DAILY, TAB.SA 07/11/18 Aripiprazole* (Abilify*) 5 Mg Tab, 5 MG PO QHS, #30 TAB 07/11/18 Acetaminophen* (Acetaminophen*) 500 MG Extra Strength Tablet, 1000 MG PO Q8H PRN for PAIN AND OR ELEVATED TEMP, TAB 07/11/18 Amlodipine Besylate* (Norvasc*) 5 Mg Tablet, 5 MG PO DAILY, TAB 07/11/18 Imaging Xrays obtained in clinic today and personally reviewed by myself: AP pelvis and AP/Lat of the right hip demonstrate hip s/p cemented hip hemiarthroplasty with hip reduced. Components in good position and alignment. No signs of wear, osteolysis, loosening, component failure, or fracture. No acute complications. Assessment/Plan Hospital Course (Demo Recall) 68-year-old female doing well 3 weeks s/p right hip hemiarthroplasty -Continue physical therapy. Weight-bear as tolerated - Posterior Hip precautions: Continue - DVT Prophylaxis: Lovenox 40 mg daily for total of 6 weeks from date of surgery - FU 4 weeks for repeat clinical and radiographic exam - Antibiotic dental prophylaxis for any cleaning or procedure NISH CORBETT MD August 01, 2018 20:17
== END | disposition home or self-care (01) ==
LOC: HKI 14:33
PROVIDERS: ATTEND Orthopaedic Surgery Adult Reconstructive Orthopaedic Surgery
DX: Z47.1 Aftercare following joint replacement surgery (principal); Z96.641 Presence of right artificial hip joint